=== PATIENT | male | born 1960 | race Caucasian/White ===

== ENCOUNTER 2017-01-22 09:29 | Emergency (ER) | payer OTHER ==
[2017-01-22 10:10] LABS: #Basophils 0.1 thou/uL (0.0-0.2); #Eosinphils 0.2 thou/uL (0.0-0.7); #Lymphocytes 3.6 thou/uL (1.20-3.40); #Monocytes 0.6 thou/uL (0.11-0.59); #Neutrophils 4.7 thou/uL (1.40-6.50); %Basophils 0.6 % (0.0-1.0); %Lymphocytes 39.8 % (21.0-51.0); Hematocrit 44.9 % (42.0-52.0); Mean Platelet Volume 7.5 fL (7.4-10.4); Red Blood Cell (RBC) Count 4.94 mill/uL (4.70-6.10)
[2017-01-22 10:24] LABS: ALT (SGPT) 25 U/L (8-55); AST (SGOT) 23 U/L (5-34); Alkaline Phosphatase 54 U/L (40-150); Anion Gap 11 mmol/L (10-20); BUN (Urea Nitrogen) 9 mg/dL (8.4-25.7); Bilirubin, Total 0.5 mg/dL (0.2-1.2); CK (CPK) 59 U/L (30-200); Calc. Creatinine Clearance 0 mL/min (70-130); Calcium 9.4 mg/dL (7.8-10.44); Carbon Dioxide 24 mmol/L (22-29); Chloride 105 mmol/L (98-107); Estimated GFR-MDRD 79; Globulin 3.1 g/dL (2.4-3.5); Lipase 36 U/L (8-78); Protein, Total 7.4 g/dL (6.0-8.3)
[2017-01-22 10:28] LABS: Troponin I Less than 0.010 ng/mL (< 0.028)
[2017-01-22] MEDS ORDERED: Lidocaine Viscous Sol 2% 15 ml UD Cup ONE (10:28)
[2017-01-22] MEDS ORDERED: Mag-Al 1200 mg/1200 mg/30 ML UDCUP ONE (10:28)
[2017-01-22] MEDS ORDERED: Labetalol HCl 100 MG/20 ML VIAL ONE (10:29)
--- NOTE | 2017-01-22 10:57 | RAD ---
PORTABLE CHEST: History: Chest pain. Comparison: 09-21-16 FINDINGS: Lungs are clear. No infiltrate or vascular congestion. Heart and mediastinum unremarkable. IMPRESSION: No evidence of acute process. POS: [facility]
== END 2017-01-22 11:21 | disposition home or self-care (01) ==
LOC: ERS 09:29
DX: R10.13 Epigastric pain (principal); I25.10 Atherosclerotic heart disease of native coronary artery without angina pectoris; E78.5 Hyperlipidemia, unspecified; I10 Essential (primary) hypertension; F17.210 Nicotine dependence, cigarettes, uncomplicated; I25.2 Old myocardial infarction; Z79.82 Long term (current) use of aspirin; Z79.899 Other long term (current) drug therapy
CPT/HCPCS: 71010; 80053; 82553; 83690; 84484; 85025; 93005

== ENCOUNTER 2017-01-29 22:59 | Inpatient (IN) | payer OTHER, SELFPAY ==
[2017-01-30 00:16] LABS: Anion Gap 19 mmol/L (10-20); BUN (Urea Nitrogen) 8 mg/dL (8.4-25.7); CK (CPK) 96 U/L (30-200); Calc. Creatinine Clearance 0 mL/min (70-130); Carbon Dioxide 20 mmol/L (22-29); Chloride 101 mmol/L (98-107); Estimated GFR-MDRD 84
[2017-01-30 00:19] LABS: #Eosinphils 0.2 thou/uL (0.0-0.7); #Lymphocytes 4.5 thou/uL (1.20-3.40); #Monocytes 0.7 thou/uL (0.11-0.59); #Neutrophils 5.3 thou/uL (1.40-6.50); %Basophils 0.3 % (0.0-1.0); %Eosinophils 1.6 % (0.0-10.0); %Lymphocytes 41.8 % (21.0-51.0); %Monocytes 6.8 % (0.0-10.0); Hematocrit 43.1 % (42.0-52.0); Mean Platelet Volume 7.9 fL (7.4-10.4); Red Blood Cell (RBC) Count 4.76 mill/uL (4.70-6.10); White Blood Cell (WBC) Count 10.7 thou/uL (4.8-10.8)
[2017-01-30 00:20] LABS: PTT 26.5 SEC (22.9-36.1); Prothrombin Time 14.1 SEC (12.0-14.7)
[2017-01-30 00:21] LABS: Troponin I Less than 0.010 ng/mL (< 0.028)
[2017-01-30 00:49] LABS: Bilirubin Negative (Negative); Blood, Urine Negative (Negative); Glucose, Urine (Dipstick) 250 mg/dL (Negative); Ketone, Urine Negative (Negative); Nitrite Negative (Negative); Protein, Urine (Dipstick) Negative (Neg-Trace); Urobilinogen 0.2 mg/dL (0.2-1.0)
[2017-01-30] MEDS ORDERED: Acetaminophen 325 MG TAB PO PRN (03:44)
[2017-01-30] MEDS ORDERED: Ondansetron ODT 4 MG TAB PO PRN (03:44)
[2017-01-30] MEDS ORDERED: Potassium Chloride 20 MEQ TAB PO SCH (04:00)
[2017-01-30] MEDS ORDERED: Potassium Chloride 20 MEQ TAB ONE (05:17)
--- NOTE | 2017-01-30 06:18 | HP-2 ---
CODE STATUS: FULL. PRIMARY CARE PHYSICIAN: [facility] [place]. ATTENDING PHYSICIAN: Dr. Adriana Willard. RESIDENT: Eliz Henderson D.O. CHIEF COMPLAINT: Near syncope, left-sided facial paresthesias. HISTORY OF PRESENT ILLNESS: This is a 56-year-old male with past medical history of coronary artery disease status post stents x5, hyperlipidemia, hypertension that presents secondary to left-sided facial paresthesias. He reports that he was sitting on the porch drinking alcohol with his when he suddenly started to experience sharp pain in his left baptism and tingling in the left cheek and gums. The patient did feel like he was going to pass out, but denied any loss of consciousness. The patient endorses having 4-5 of these episodes today, lasting 10 minutes at a time. Last episode was associated with blurry vision. No facial droop or asymmetry was noted by the during these episodes. The patient denied any chest pain, weakness, gait changes, seizures or speech changes. He took 324 mg aspirin prior to arrival. The patient does state that he has never experienced anything like this in the past. He is unable to recall whether or not he had any associated photophobia or sensitivity to Sound. PAST MEDICAL HISTORY: 1. Coronary artery disease status post stents x5. 2. Myocardial infarction. 3. Hyperlipidemia. 4. Hypertension. PAST SURGICAL HISTORY: 1. Cardiac stents x5, the last one was placed in 04/2016. 2. Left inguinal hernia repair x3 with mesh. 3. Cyst removal from the back of the neck. ALLERGIES: 1. LISINOPRIL. 2. NIACIN. MEDICATIONS: 1. Clopidogrel 75 mg daily. 2. Metoprolol tartrate 25 mg b.i.d. 3. Aspirin 81 mg daily. 4. Famotidine 20 mg b.i.d. 5. Amlodipine 5 mg daily. 6. Atorvastatin 40 mg at bedtime. 7. Fenofibrate 108 mg daily. 8. Fluticasone 50 mcg 2 sprays each nostril. 9. Loratadine 10 mg daily. 10. Nitroglycerin 0.4 mg p.r.n. 11. Protonix 40 mg daily. FAMILY HISTORY: Family history of strokes. SOCIAL HISTORY: The patient is a current half pack per day smoker. He has been smoking for the last 30 years. The patient endorses alcohol use; however, he was very defensive when questioned about how much and how often he drinks. He would only state that he drinks a couple times a week, but would not elaborate on how much. The patient denies any drug use. REVIEW OF SYSTEMS: A 12 point review of systems was performed. All were negative except as listed in the HPI. PHYSICAL EXAMINATION: VITAL SIGNS: Blood pressure 100/56, pulse 68, respiratory rate 18, T-max 97.3, pulse ox 96% on room air, current weight 93 kilograms. GENERAL: The patient is alert and oriented x3, no acute distress, well- developed, well-nourished, and appropriately interactive. EYES: Pupils equally round, reactive to light and accommodation. Extraocular muscles intact. Conjunctivae within normal limits. ENT: Nasal mucosa within normal limits. NECK: Neck is supple, without lymphadenopathy, thyromegaly or bruits. CARDIOVASCULAR: Regular rate and rhythm. No murmurs or gallops. Radial pulses 2+. Pedal pulses 2+. RESPIRATORY: Normal respiratory effort, no retractions. LUNGS: Clear to auscultation bilaterally. SKIN: Skin is warm and dry without cyanosis or lesions. ABDOMEN: Abdomen is soft, nontender to palpation. Bowel sounds positive in all four quadrants. There is mild distention of the abdomen. EXTREMITIES: No clubbing, cyanosis or edema. MUSCULOSKELETAL: Structure within normal limits and tone within normal limits. NEUROLOGIC: No focal deficits. Sensation within normal limits. Cranial nerves II through XII intact. GCS 15. No facial droop or asymmetry noted on exam. Muscle strength was 5/5 throughout. PSYCHIATRIC: Appropriate. LABORATORY DATA: 1. CBC reveals a white blood cell count 10.7, hemoglobin 14.7, hematocrit 43.1 , platelet count 260. 2. BMP reveals sodium 137, potassium 3.3, chloride 101, bicarbonate 20, BUN 8, creatinine 0.92, glucose of 173, and calcium of 9.0. 3. PT 26.5, INR 1.1, PTT 14.1. 4. CK 96. 5. CK-MB 1.5, troponin less than 0.010. 6. UA shows only 250 glucose. 7. Influenza A and B negative. ASSESSMENT AND PLAN: This is a 56-year-old male with past medical history of coronary artery disease, hyperlipidemia, hypertension, who presented with facial numbness. 1. Episodes concerning for transient ischemic attack versus complex migraine versus trigeminal neuralgia. The patient was admitted for observation to the stroke unit. CT of the brain was normal. CTA of the head and neck are pending as well as MRI of the brain without contrast. The patient states he is compliant with medication. Coags were normal. The patient took 324 mg of aspirin today. We will continue with daily aspirin and do q.4 hour neuro checks while in observation. 2. Hypertension. Continue home medications. 3. Hyperlipidemia. Continue home medications. 4. Coronary artery disease status post stents. Continue home medications. Troponin was negative. 5. Alcohol abuse. The patient is in denial and defensive when asked questions regarding alcohol use, thus we were unable to elicit a valid or reliable history. The patient was placed on ASE protocol. His alcohol level was noted to be 58 in the ED. We will also give the patient thiamine. 6. Tobacco abuse, counseled on cessation. 7. Gastrointestinal prophylaxis, Protonix. 8. Deep venous thrombosis prophylaxis, sequential compression devices. DISPOSITION AND LENGTH OF HOSPITAL STAY: One day. Symptomatic medications will be provided. History and physical exam as well as management discussed with Dr. Adriana Willard. [place]
--- NOTE | 2017-01-30 08:17 | CT ---
PRELIMINARY REPORT/[facility]/EMERGENCY AFTER HOURS PROCEDURE: EXAM: CT Head Without Intravenous Contrast EXAM DATE/TIME: 01/30/2017 12:10 AM CLINICAL HISTORY: 56 years old, male; Pain; Headache; Headache not specified; Patient HX: PATEL TECHNIQUE: Axial computed tomography images of the head/brain without intravenous contrast. COMPARISON: No relevant prior studies available. FINDINGS: Brain: No evidence of acute large vessel infarction. No evidence of acute intracranial hemorrhage, ex traxial fluid or midline shift. Mild prominence of the cerebral sulci and ventricles. Mild low densit y changes within the white matter bilaterally. Cerebellum atrophic; otherwise, posterior fossa struct ures within normal limits. Ventricles: See above. Bones/joints: Unremarkable. No acute fracture. Soft tissues: Unremarkable. Sinuses: Complete fluid opacification of the right maxillary sinus. Mastoid air cells: Unremarkable as visualized. No mastoid effusion. IMPRESSION: 1. No evidence of acute large vessel infarction. 2. No evidence of acute intracranial hemorrhage, extraxial fluid or midline shift. 3. Mild cerebral atrophy. 4. 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 5. Complete fluid opacification of the right maxillary sinus. Thank you for allowing us to participate in the care of your patient. Dictated and Authenticated by: Ry Roe MD 01/30/2017 12:29 AM Central Time ([place] & [place]) FINAL REPORT EMERGENCY AFTER HOURS CT OF BRAIN PERFORMED WITHOUT CONTRAST ENHANCEMENT: Date: 01/29/17 HISTORY: Headache. Gait disturbance. FINDINGS: There is mild ventricular and sulcal prominence for age. No signs of intracerebral hemorrhage or extr a-axial fluid collections. Mastoid air cells are clear. Right maxillary sinus is opacified. IMPRESSION: No acute intracranial abnormalities. This report is in agreement with the preliminary report issued by [facility]. POS: [facility]
[2017-01-30 08:31] VITALS: BP 154/98; TEMP 98; BMI 29.0
[2017-01-30] MEDS ORDERED: Aspirin 81 mg Enteric Coated Tablet PO SCH (09:00)
--- NOTE | 2017-01-30 10:40 | CT ---
CONTRAST ENHANCED CTA NECK AND INTRACRANIAL CTA: HISTORY: TIAs. TECHNIQUE: A contrast enhanced CTA is performed, and 2D and 3D reconstructed images are performed on an [facility] ent 3D work station. FINDINGS: Noncontrast enhanced CT images of the brain are unremarkable. There is a small right temporal bone dural-based calcified density, possibly representing a tiny righ t squamosal portion temporal bone meningioma. The rest of the [place] CTA is unremarkable. No evidence of filling defect seen in the KAREN, MCA, or CONTINUING EDUCATION SPECIALIST vessels. The aortic arch is unremarkable. The right brachiocephalic artery is unremarkable. The right and le ft common carotid arteries are patent without evidence of significant stenosis or disease. There is some minimal atherosclerotic plaque at the distal aspect of the right CCA. The right and left ICAs a re patent. Incidentally noted complete opacification of the right maxillary sinus is seen. There does appear to be a small left maxillary sinus mucus retention cyst. IMPRESSION: Minimal but not significant degree of distal right common carotid artery calcified plaque. POS: [facility]
--- NOTE | 2017-01-30 11:07 | MRI ---
MRI BRAIN WITHOUT CONTRAST: Date: 01/30/17 HISTORY: TIA. FINDINGS: Correlation is made with the CT scan from earlier today. No restricted diffusion is seen. No evidence of infarct, hemorrhage, midline shift, or abnormal extra -axial fluid collections noted. The ventricular size is appropriate and the basilar cisterns are stap[place] nt. A few foci of T2 prolongation in the periventricular white matter are consistent with mild chroni c small vessel ischemic disease. There is mucosal disease in the paranasal sinuses. IMPRESSION: No evidence of acute intracranial process. POS: [facility]
[2017-01-30 12:52] LABS: Anion Gap 11 mmol/L (10-20); BUN (Urea Nitrogen) 8 mg/dL (8.4-25.7); Calc. Creatinine Clearance 119 mL/min (70-130); Calcium 9.4 mg/dL (7.8-10.44); Carbon Dioxide 26 mmol/L (22-29); Chloride 105 mmol/L (98-107); Estimated GFR-MDRD 89
[2017-01-30] MEDS ORDERED: ISOVUE-370 76%-LOCM 1 ML ONE (13:33)
--- NOTE | 2017-01-30 19:34 | PDOC.EVN ---
Event Note - Event Note Event Note: Patient seen and examined. Case discussed with Dr. Henderson and her and Noe 's H&P reviewed and repeated by me. Agree with A/P as documented. Briefly Mr. Deal is a 56 yo WM with PMH of CAD s/p stents. HTN, HLD who presents with left temporal pain and numbness of the middle and lower portion of left face. Several 5 minute episodes while drinking on the porch. By the time he got to ER symptoms had all resolved. Denied fever, rash, gait or strength problems, dizziness. exam: a&o x3, nad NEck: no carotid bruits Heart: normal s1/s2 no m Lungs: ctab Neuro: no focal deficits Labs and imaging reviewed 1. L face numbness: large differential but most likely either paresthesia secondary to B12 deficiency vs. complex migraine vs shingles pain (with rash to follow). MRI with defect so I doubt CVA vs TIA. No sign of significant carotid stenosis. No sign of temportal arteritis as resolved and sed rate of 3 2. B12 deficiency- replace with OTC b12 supplement 3. Alcohol abuse- patient with no desire to change habit 4. HTN- home meds Stable for d/c home.
--- NOTE | 2017-02-02 23:55 | DIS-2 ---
DATE OF ADMISSION: 01/30/2017 DATE OF DISCHARGE: 01/30/2017 ADMITTING ATTENDING: Dr. Adriana Willard. DISCHARGE ATTENDING: Dr. Adriana Willard. RESIDENT: Dr. Isak Pritchard. CONSULTS: None. PROCEDURES: 1. Brain CT impression: No evidence of acute large vessel infarction. No evidence of acute intracr anial hemorrhage, extraaxial fluid, or midline shift, mild cerebral atrophy, mild white matter low de nsity changes most compatible with cerebral leukoencephalopathy related to chronic small vessel ische solitario disease, complete fluid opacification of right maxillary sinus. 2. Brain MRI impression: No restricted diffusion is seen, no evidence of infarct, hemorrhage, midli ne shift, or abnormal extraaxial fluid collection noted. There is mucosal disease in the paranasal s inuses, mild chronic small vessel ischemic disease. 3. CT angio of [place] with contrast impression: There is a small right temporal bone dura l based calcified density, possibly representing a tiny right squamosal portion temporal bone meningi tommy, the rest of the [place] CTA is unremarkable, no evidence of filling defects. There is incidentally noted complete opacification of right maxillary sinus and appears to be a small left max illary sinus mucous retention cysts and minimal, but not significant distal right common carotid trevor ry calcified plaque. PRIMARY DIAGNOSES: Left-sided paresthesia likely complex migraine versus trigeminal neuralgia versus transient ischemic attack. SECONDARY DIAGNOSES: 1. Hypertension. 2. Hyperlipidemia. 3. Coronary artery disease, status post stent. 4. Alcohol abuse. 5. Tobacco abuse. 6. Left-sided meningioma. 7. Low vitamin B12. DISCHARGE MEDICATIONS: 1. Nitroglycerin 0.4 mg sublingual every 5 minutes as needed for angina. 2. Pantoprazole 40 mg p.o. daily. 3. Claritin 10 mg p.o. daily. 4. Famotidine 20 mg p.o. b.i.d. 5. Atorvastatin 40 mg p.o. daily. 6. Amlodipine 5 mg p.o. daily. 7. Plavix 75 mg p.o. daily. 8. Metoprolol 25 mg p.o. daily. 9. Fluticasone furoate 9.9 mL nasal spray daily. 10. Fenofibrate 120 mg p.o. daily. 11. Aspirin 81 mg daily. DISCONTINUED MEDICATIONS: None. HISTORY OF PRESENT ILLNESS AND HOSPITAL COURSE: This is a 56-year-old male with past medical history of CAD post-stent x5, hyperlipidemia, hypertension, who presented secondary to left-sided facial par esthesia. He states that he was sitting on the porch, drinking alcohol with his when he suddenl y experienced sharp pain in his left synagogue and tingling in his left cheeks and gums. He said that h e felt like he was about to faint, but did not lose consciousness. He states that he had about 4-5 e pisodes of these lasting 10 minutes of each. However, there was no facial droop or asymmetry or slur red speech witnessed by either him or his . He took 324 mg aspirin prior to arrival at the ED. He states that he never had anything like this before. Please see his above procedures for results. In the ED, his electrolytes were found to be within the normal limits. He was then admitted to [facility] floor for further TIA workup. The workup for TIA came back negative. Because of his unusual situ ation, he was also tested for vitamin B12 and RPR, RPR came back negative. UDS was done and did find that he had elevated plasma alcohol at 58. Vitamin B12 was found to be low at 193 about 10% low luisito n normal level. As the results of all his test was negative, we had ruled out stroke as a possibilit y; however, talking with the patient several other options were presented as possible causes for his symptoms, which the beginning of a shingle episode versus trigeminal neuralgia versus atypical migrai ne headache. He was given information related to each of those and how to recognize their sign, do n ot feel that temporal arteritis, as he did not have any tenderness or to this temporal artery and was not palpable. Patient's symptoms had completely resolved on the evening of discharge. He was also reminded that he should follow up with his primary care physician about the meningioma likely needing a repeat imaging CT or MRI within 6 months. He was also educated on his low vitamin B12 and advised to start taking a multivitamin and following up with his PCP. DISPOSITION: Stable. DISCHARGE INSTRUCTIONS: 1. Location: To home. 2. Diet: Heart-healthy diet. 3. Activity: As tolerated. 4. Followup: Followup visit with PCP within 1 week.
--- NOTE | 2017-02-06 11:36 | CT ---
CONTRAST ENHANCED CTA NECK AND INTRACRANIAL CTA: HISTORY: TIAs. TECHNIQUE: A contrast enhanced CTA is performed, and 2D and 3D reconstructed images are performed on an [facility] ent 3D work station. FINDINGS: Noncontrast enhanced CT images of the brain are unremarkable. There is a small right temporal bone dural-based calcified density, possibly representing a tiny righ t squamosal portion temporal bone meningioma. The rest of the [place] CTA is unremarkable. No evidence of filling defect seen in the KAREN, MCA, or CHIEF MECHANICAL ENGINEER vessels. The aortic arch is unremarkable. The right brachiocephalic artery is unremarkable. The right and le ft common carotid arteries are patent without evidence of significant stenosis or disease. There is some minimal atherosclerotic plaque at the distal aspect of the right CCA. The right and left ICAs a re patent. Incidentally noted complete opacification of the right maxillary sinus is seen. There does appear to be a small left maxillary sinus mucus retention cyst. IMPRESSION: Minimal but not significant degree of distal right common carotid artery calcified plaque.
== END 2017-01-30 16:05 | disposition home or self-care (01) | DRG 74 ==
LOC: ERS 22:59 → ERHOLD 01-30 02:05 → 2SW 01-30 08:02
PROVIDERS: ADMIT Family Medicine; ATTEND Family Medicine
DX: G50.0 Trigeminal neuralgia (principal); G45.9 Transient cerebral ischemic attack, unspecified; G43.809 Other migraine, not intractable, without status migrainosus; R55 Syncope and collapse; I25.10 Atherosclerotic heart disease of native coronary artery without angina pectoris; Z95.5 Presence of coronary angioplasty implant and graft; E78.5 Hyperlipidemia, unspecified; I10 Essential (primary) hypertension; I25.2 Old myocardial infarction; F10.10 Alcohol abuse, uncomplicated; F17.210 Nicotine dependence, cigarettes, uncomplicated; E53.8 Deficiency of other specified B group vitamins; D32.0 Benign neoplasm of cerebral meninges; Y90.2 Blood alcohol level of 40-59 mg/100 ml; Z79.82 Long term (current) use of aspirin
CPT/HCPCS: 36415; 70450; 70496; 70498; 70551; 80048; 80307; 81003; 82550; 82553; 82607; 84484; 85025; 85610; 85652; 85730; 86780; 87086; 93005; 99406

== ENCOUNTER 2018-01-05 13:22 | Outpatient (CLI) | payer OTHER ==
[~2018-01-05 13:22] MED LIST: Gadobenate Dimeglumine 529 MG/1 ML (20ML VIAL) ONE
--- NOTE | 2018-01-05 19:04 | MRI ---
MRI PELVIS WITH AND WITHOUT CONTRAST: Date: 01/05/18 HISTORY: Prostate cancer. COMPARISON: None. TECHNIQUE: Multiplanar, multisequence MRI of the prostate performed prior to and after the intravenous administr ation of contrast. 3D rendering is provided. The examination was reviewed on an independent 3D workstation. FINDINGS: Prostate measures 5.2 x 4.3 x 3.7, for a volume of 40.48 cm. Peripheral Zone: No abnormality is seen on the diffusion-weighted imaging or the ADC. Transitional Zone: There are circumscribed hypointense and heterogeneous encapsulated nodules. Seminal Vesicles: Intact. Neurovascular Bundles: Intact. Lymph Nodes: No pathologically enlarged lymph nodes. Left obturator lymph node is seen, although has normal fatty hilum. Bones: On the large field of view T1-weighted sequence, there are no abnormal areas of marrow signal replace ment to suggest osseous metastatic disease. Likely a prior left inguinal hernia repair. Mild to moderate diverticular disease sigmoid colon witho ut active current inflammation. IMPRESSION: PI-RADS 2: Low (clinically significant prostate cancer is unlikely to be present). POS: [facility]
== END 2018-01-05 13:23 | disposition home or self-care (01) ==
LOC: TBSIIMAG 13:22
DX: C61 Malignant neoplasm of prostate (principal)
CPT/HCPCS: 72197; 82565; A9579

== ENCOUNTER 2018-02-01 15:31 | Observation (INO) | payer OTHER, SELFPAY ==
--- NOTE | 2018-02-01 15:56 | CT ---
CT BRAIN WITHOUT CONTRAST: Date: 02/01/18 HISTORY: Slurred speech. FINDINGS: Comparison made with exam of 01/30/17. No evidence of acute infarct, hemorrhage, midline shift, or abnormal extra-axial fluid collections ar e seen. The ventricular size is stable and the basilar cisterns are patent. The bony calvarium is int act. There is mucosal disease in the paranasal sinuses. IMPRESSION: No CT evidence of acute intracranial process. Discussed over the telephone with ER physician, Dr. Castañeda, at 1550 hours./ CODE CR. POS: [facility]
[2018-02-01 15:58] LABS: #Basophils 0.1 thou/uL (0.0-0.2); #Eosinphils 0.1 thou/uL (0.0-0.7); #Monocytes 0.8 thou/uL (0.11-0.59); #Neutrophils 4.9 thou/uL (1.40-6.50); %Basophils 0.9 % (0.0-1.0); %Eosinophils 1.2 % (0.0-10.0); %Lymphocytes 40.5 % (21.0-51.0); %Monocytes 8.2 % (0.0-10.0); %Neutrophils 49.2 % (42.0-75.0); Hemoglobin 15.9 g/dL (14.0-18.0); Mean Corpuscular HGB CONC 33.7 g/dL (32.0-36.0); Mean Corpuscular Hemoglobin 30.8 pg (27.0-31.0); Mean Corpuscular Volume 91.2 fL (78.0-98.0); Platelet Count 256 thou/uL (130-400); RBC Distribution Width 12.4 % (11.5-14.5); Red Blood Cell (RBC) Count 5.17 mill/uL (4.70-6.10); White Blood Cell (WBC) Count 9.9 thou/uL (4.8-10.8)
[2018-02-01 16:11] LABS: INR-International Normal Ratio 1.1; PTT 30.7 SEC (22.9-36.1)
[2018-02-01 16:18] LABS: Acetaminophen Less than 6.0 mcg/mL (10.0-30.0); Alcohol Less than 10 mg/dL (Less than 10); Salicylate Less than 8.0 mg/dL (15.0-30.0)
[2018-02-01 16:19] LABS: ALT (SGPT) 23 U/L (8-55); AST (SGOT) 24 U/L (5-34); Albumin 4.2 g/dL (3.5-5.0); Alkaline Phosphatase 59 U/L (40-150); Anion Gap 14 mmol/L (10-20); BUN (Urea Nitrogen) 12 mg/dL (8.4-25.7); Bilirubin, Total 0.6 mg/dL (0.2-1.2); Calc. Creatinine Clearance 0 mL/min (70-130); Calcium 9.6 mg/dL (7.8-10.44); Carbon Dioxide 20 mmol/L (22-29); Chloride 108 mmol/L (98-107); Estimated GFR-MDRD 76; Globulin 2.8 g/dL (2.4-3.5); Glucose 99 mg/dL (70-105); Potassium 4.4 mmol/L (3.5-5.1); Sodium 138 mmol/L (136-145)
[2018-02-01 16:32] LABS: Bilirubin Negative (Negative); Blood, Urine Negative (Negative); Clarity CLEAR (Clear); Glucose, Urine (Dipstick) Negative (Negative); Leukocyte Negative (Negative); Nitrite Negative (Negative); Protein, Urine (Dipstick) Negative (Neg-Trace); Specific Gravity, Urine 1.013 (1.002-1.036); pH, Urine 6.5 (5.0-9.0)
--- NOTE | 2018-02-01 16:38 | RAD ---
PORTABLE CHEST ONE VIEW: Date: 02-01-18 Time: 4:02 p.m. History: Altered mental status. FINDINGS: Comparison is made with exam of 01-22-17. The heart size is normal. The lungs are expanded without focal areas of consolidation, pneumothorax, or pleural effusions. IMPRESSION: No radiographic evidence of acute cardiopulmonary process. POS: [facility]
[2018-02-01 16:43] LABS: Amphetamine Not Detected (NotDetected); Barbiturates Screen Not Detected (NotDetected); Benzodiazepine Screen Not Detected (NotDetected); Cocaine Metabolite Screen Not Detected (NotDetected); Medtox Control Line Valid? VALID (VALID); Medtox Reader # READER 4; Methadone Not Detected (NotDetected); Methamphetamine Not Detected (NotDetected); Opiate Screen Not Detected (NotDetected); Oxycodone Screen Not Detected (NotDetected); Phencyclidine (PCP) Not Detected (NotDetected); THC/Cannabinoid Screen Not Detected (NotDetected); Tricyclic Screen Not Detected (NotDetected)
[2018-02-01 21:24] VITALS: BMI 27.5
[2018-02-02] MEDS ORDERED: Nitroglycerin 0.4 MG TAB (25 Tab Bottle) SL SCH (07:45)
[2018-02-02] MEDS ORDERED: Nitroglycerin 0.4 MG TAB (25 Tab Bottle) SL PRN (08:11)
[2018-02-02] MEDS ORDERED: Ondansetron ODT 4 MG TAB PO PRN (08:34)
[2018-02-02] MEDS ORDERED: FENOFIBRATE 120 MG PO SCH (09:00)
[2018-02-02] MEDS ORDERED: Atorvastatin Calcium 40 MG TAB PO SCH (09:00)
[2018-02-02] MEDS ORDERED: FLUTICASONE FUROATE NS SCH (09:00)
[2018-02-02] MEDS ORDERED: Metoprolol Tartrate 25 MG TAB PO SCH (09:00)
[2018-02-02] MEDS ORDERED: Amlodipine 5 MG TAB PO SCH (09:00)
[2018-02-02] MEDS ORDERED: Famotidine 20 MG TAB PO SCH (09:00)
[2018-02-02] MEDS ORDERED: Loratadine 10 MG TAB PO SCH (09:00)
[2018-02-02] MEDS ORDERED: Clopidogrel Bisulfate 75 MG TAB PO SCH (09:00)
[2018-02-02] MEDS ORDERED: Amlodipine 10 MG TAB PO SCH (09:00)
[2018-02-02] MEDS ORDERED: Fenofibrate Nanocrystallized 145 MG TAB PO SCH (09:00)
[2018-02-02] MEDS ORDERED: Non-Formulary Item 1 EACH (Loratadine [Claritin] 10 MG) PO SCH (09:00)
[2018-02-02] MEDS ORDERED: Fluticasone Propionate Nasal Spray 16 gm Bottle NASAL SCH (09:00)
[2018-02-02] MEDS ORDERED: Aspirin 81 mg Enteric Coated Tablet PO SCH (09:00)
--- NOTE | 2018-02-02 09:16 | ULT ---
BILATERAL CAROTID DUPLEX ULTRASOUND: DATE: 02/02/18 HISTORY: TIA and CVA. TECHNIQUE: Lara scale ultrasound with color flow and spectral Doppler imaging of the extracranial carotid artery systems performed. FINDINGS: The peak systolic velocity in the right ICA measures 58 cm/second with an end-diastolic velocity of 1 7 cm/second and a systolic ratio of 0.74. The peak systolic velocity in the left ICA measures 67 cm/second with an end-diastolic velocity of 21 cm/second and a systolic ratio of 0.84. Flow in both vertebral arteries remains antegrade. IMPRESSION: No evidence of hemodynamically significant stenosis. POS: [facility]
--- NOTE | 2018-02-02 09:57 | MRI ---
MRI BRAIN WITHOUT CONTRAST: Date: 02/02/18 HISTORY: TIA. FINDINGS: Comparison made with exam of 01/30/17. Correlation is made with CT scan from previous day. Changes of mild chronic small vessel ischemic disease are again seen. No restricted diffusion is iden tified. No evidence of infarct, hemorrhage, midline shift, or abnormal extra-axial fluid collections are seen. The ventricular size is stable and the basilar cisterns are patent. There is mucosal diseas e in the paranasal sinuses. IMPRESSION: No evidence of acute intracranial process. POS: [facility]
[2018-02-02 11:31] VITALS: BP 122/83; TEMP 97.7
== END 2018-02-02 13:35 | disposition home or self-care (01) ==
LOC: ERS 15:31 → 2SE 18:43
PROVIDERS: ADMIT Internal Medicine Infectious Disease; ATTEND Internal Medicine Infectious Disease
DX: R29.810 Facial weakness (principal); R47.81 Slurred speech; I25.2 Old myocardial infarction; I25.10 Atherosclerotic heart disease of native coronary artery without angina pectoris; E78.5 Hyperlipidemia, unspecified; E78.00 Pure hypercholesterolemia, unspecified; I10 Essential (primary) hypertension; F17.210 Nicotine dependence, cigarettes, uncomplicated; Z79.02 Long term (current) use of antithrombotics/antiplatelets; Z79.82 Long term (current) use of aspirin; Z79.51 Long term (current) use of inhaled steroids; Z79.899 Other long term (current) drug therapy; Z88.8 Allergy status to other drugs, medicaments and biological substances; Z95.5 Presence of coronary angioplasty implant and graft
CPT/HCPCS: 36416; 70450; 70551; 71045; 80053; 80306; 80307; 81003; 84484; 85025; 85610; 85730; 93005; 93880; G0378

== ENCOUNTER 2019-02-09 20:25 | Inpatient (IN) | payer OTHER ==
[2019-02-09] MEDS ORDERED: Aspirin Chewable 81 MG TAB ONE (20:41)
[2019-02-09 20:47] LABS: #Basophils 0.1 thou/uL (0.0-0.2); #Eosinphils 0.2 thou/uL (0.0-0.7); #Lymphocytes 4.3 thou/uL (1.20-3.40); #Monocytes 0.8 thou/uL (0.11-0.59); %Basophils 0.7 % (0.0-1.0); %Eosinophils 1.2 % (0.0-10.0); %Lymphocytes 35.2 % (21.0-51.0); %Monocytes 6.4 % (0.0-10.0); %Neutrophils 56.5 % (42.0-75.0); Hemoglobin 15.2 g/dL (14.0-18.0); Mean Corpuscular HGB CONC 33.8 g/dL (32.0-36.0); Mean Corpuscular Hemoglobin 30.5 pg (27.0-31.0); Mean Platelet Volume 7.6 fL (7.4-10.4); Platelet Count 236 thou/uL (130-400); RBC Distribution Width 12.2 % (11.5-14.5); Red Blood Cell (RBC) Count 4.98 mill/uL (4.70-6.10); White Blood Cell (WBC) Count 12.3 thou/uL (4.8-10.8)
[2019-02-09] MEDS ORDERED: DOPamine 400 MG/D5W 250 ML 250 ML ONE (20:48)
--- NOTE | 2019-02-09 20:56 | RAD ---
EXAM: Portable chest PROVIDED CLINICAL HISTORY: Dyspnea COMPARISON: 02/01/2018 FINDINGS: Cardiac and mediastinal silhouette is within normal limits. No focal consolidation, pleural fluid or pneumothorax evident. Evaluation is limited due to material overlying the chest. IMPRESSION: No evidence for an acute cardiopulmonary process.
[2019-02-09 21:02] LABS: ALT (SGPT) 18 U/L (8-55); AST (SGOT) 15 U/L (5-34); Albumin 4.1 g/dL (3.5-5.0); Alkaline Phosphatase 54 U/L (40-110); Anion Gap 14 mmol/L (10-20); BUN (Urea Nitrogen) 15 mg/dL (8.4-25.7); Bilirubin, Total 0.4 mg/dL (0.2-1.2); CK (CPK) 54 U/L (30-200); Calc. Creatinine Clearance 0 mL/min (70-130); Calcium 8.8 mg/dL (7.8-10.44); Carbon Dioxide 20 mmol/L (22-29); Chloride 105 mmol/L (98-107); Estimated GFR-MDRD 66; Globulin 2.7 g/dL (2.4-3.5); Glucose 129 mg/dL (70-105); Lipase 41 U/L (8-78); Potassium 3.9 mmol/L (3.5-5.1); Protein, Total 6.8 g/dL (6.0-8.3); Sodium 135 mmol/L (136-145)
[2019-02-09 21:03] LABS: Alcohol Less than 10 mg/dL (Less than 10); Salicylate Less than 8.0 mg/dL (15.0-30.0)
--- NOTE | 2019-02-09 21:17 | RAD ---
EXAM: Portable chest PROVIDED CLINICAL HISTORY: Shortness of breath COMPARISON: Exam earlier same date FINDINGS: Interval placement of left subclavian central line, the tip of which projects in expected location of SVC. The supine nature of the examination is not sensitive for detection of pneumothorax, without evidence for such. Additional significant interval change with respect to the prior examination is no t apparent. IMPRESSION: As above.
[2019-02-09 21:25] LABS: CKMB 1.7 ng/mL (0-6.6)
[2019-02-09 21:31] LABS: Bilirubin Negative (Negative); Blood, Urine Negative (Negative); Clarity Clear (Clear); Glucose, Urine (Dipstick) 100 mg/dL (Negative); Leukocyte Negative Leu/uL (Negative); Nitrite Negative (Negative); Protein, Urine (Dipstick) Negative (Neg-Trace); Urobilinogen Normal mg/dL (Less than 2)
[2019-02-09 21:40] LABS: Amphetamine Not Detected (NotDetected); Benzodiazepine Screen Not Detected (NotDetected); Cocaine Metabolite Screen Not Detected (NotDetected); Medtox Reader # READER 4; Methadone Not Detected (NotDetected); Methamphetamine Not Detected (NotDetected); Opiate Screen Not Detected (NotDetected); Phencyclidine (PCP) Not Detected (NotDetected); THC/Cannabinoid Screen Not Detected (NotDetected); Tricyclic Screen Not Detected (NotDetected)
[2019-02-09 21:41] LABS: Barbiturates Screen Not Detected (NotDetected); Medtox Control Line Valid? VALID (VALID); Oxycodone Screen Not Detected (NotDetected)
--- NOTE | 2019-02-09 21:45 | PDOC.FPRHP ---
- History of Present Illness Chief Complaint: dizziness, diaphoresis History of Present Illness: PCP: [facility] ([facility]) Jacob Deal is a 58 year old M with a PMH of A fib and CAD s/p 5 stents who presented to the ED tonight after experiencing several episodes of feeling flushed, cool, clammy, and diaphoretic. Started about an hour [employer], episodes lasted several seconds to a couple minutes and resolved spontaneously. Associated SOB. Was in his normal state of health prior to onset of these symptoms. Has never had symptoms like this prior to this. Denies any fever, chills, n/v, diarrhea, abdominal pain. In ED, pt was given 2 L NS, Aspirin and left subclavian central line was placed and Dopamine was initiated. Dr. Ruby was contacted from the ED and recommended that patient be started on dopamine and admitted to CCU. Sampler And Test Preparer: Lawson Garza MD - Allergies/Adverse Reactions Allergies Allergy/AdvReac Type Severity Reaction Status Date / Time lisinopril Allergy Verified 02/02/18: niacin Allergy Verified 02/02/18 01:26 - Home Medications Medication Instructions Recorded Confirmed Type Amlodipine [Norvasc] 2.5 mg PO DAILY 01/30/17 02/10/19 History Aspirin [Aspir-Low] 81 mg PO DAILY 01/30/17 02/09/19 History Clopidogrel Bisulfate [Plavix] 75 mg PO DAILY 01/30/17 02/09/19 History Famotidine [Pepcid] 20 mg PO BID 01/30/17 02/09/19 History Fenofibrate 108 mg PO DAILY 01/30/17 02/09/19 History Fluticasone Furoate [Flonase 9.9 ml NS DAILY 01/30/17 02/09/19 History Sensimist] Loratadine [Claritin] 10 mg PO DAILY 01/30/17 02/09/19 History Metoprolol Tartrate 50 mg PO DAILY 01/30/17 02/09/19 History Nitroglycerin [Nitrostat] 0.4 mg SL Q5MIN 01/30/17 02/09/19 History - History PMHx: CAD s/p MO and stent X5, HLD, HTN PSHx: hernia repair- left inguinal, cardiac stent placement FHx: CAD in parents and brother Social: occasionally drinks a few beers a day - Review of Systems General: denies: fever/chills, weight/appetite/sleep changes, night sweats Eyes: denies: eye pain, vision changes ENT: denies: nasal congestion, rhinorrhea Respiratory: denies: cough, congestion, shortness of breath Cardiovascular: reports: chest pain. denies: palpitation, edema, orthopnea Gastrointestinal: denies: nausea, vomiting, diarrhea, abdominal pain Genitourinary: denies: incontinence, dysuria Skin: denies: rashes, lesions Musculoskeletal: denies: pain, tenderness, stiffness, swelling Neurological: denies: numbness, seizure, weakness Psychological: denies: anxiety, depression - Vital signs BP: 167/99 HR: 116 RR: 12 Tmax: 97.3 Pox: 97% on RA Wt: 90 kg - Physical Exam Constitutional: NAD, awake, alert and oriented HEENT: normocephalic and atraumatic, PERRLA, EOMI, conjunctiva clear, TM's clear and intact, normal nasal mucosa, MMM Neck: supple, FROM, no JVD Chest: no-tender to palpation, no lesions Heart: normal S1/S2, no murmurs/rubs/gallops -Heart: tachycardic Lungs: CTAB, no respiratory distress, good air movement, no rales/rhonchi, no wheezing Abdomen: soft, non-tender, bowel sounds present Musculoskeletal: normal structure, normal tone Neurological: no focal deficit, CN II-XII intact Skin: no rash/lesions, good turgor, capillary refill <2 seconds Heme/Lymphatic: no unusual bruising or bleeding, no purpura, no petechia Psychiatric: normal mood and affect, good judgment and insight, intact recent and remote memory FMR H&P: Results - Labs Result Diagrams: 02/09/19 20:37 02/09/19 20:37 Lab results: WBC 12.3 thou/uL (4.8-10.8) H 02/09/19 20:37 Hgb 15.2 g/dL (14.0-18.0) 02/09/19 20:37 Hct 44.9 % (42.0-52.0) 02/09/19 20:37 MCV 90.0 fL (78.0-98.0) 02/09/19 20:37 Plt Count 236 thou/uL (130-400) 02/09/19 20:37 Neutrophils % 56.5 % (42.0-75.0) 02/09/19 20:37 Sodium 135 mmol/L (136-145) L 02/09/19 20:37 Potassium 3.9 mmol/L (3.5-5.1) 02/09/19 20:37 Chloride 105 mmol/L (98-107) 02/09/19 20:37 Carbon Dioxide 20 mmol/L (22-29) L 02/09/19 20:37 BUN 15 mg/dL (8.4-25.7) 02/09/19 20:37 Creatinine 1.13 mg/dL (0.7-1.3) 02/09/19 20:37 Glucose 129 mg/dL (70-105) H 02/09/19 20:37 Calcium 8.8 mg/dL (7.8-10.44) 02/09/19 20:37 Total Bilirubin 0.4 mg/dL (0.2-1.2) 02/09/19 20:37 AST 15 U/L (5-34) 02/09/19 20:37 ALT 18 U/L (8-55) 02/09/19 20:37 Alkaline Phosphatase 54 U/L (40-110) 02/09/19 20:37 Creatine Kinase 54 U/L (30-200) 02/09/19 20:37 CK-MB (CK-2) 1.7 ng/mL (0-6.6) 02/09/19 20:37 B-Natriuretic Peptide 61.5 pg/mL (0-100) 02/09/19 20:37 Serum Total Protein 6.8 g/dL (6.0-8.3) 02/09/19 20:37 Albumin 4.1 g/dL (3.5-5.0) 02/09/19 20:37 Lipase 41 U/L (8-78) 02/09/19 20:37 Urine Ketones Negative mg/dL (Negative) 02/09/19 21:23 Urine Blood Negative (Negative) 02/09/19 21:23 Urine Nitrite Negative (Negative) 02/09/19 21:23 Ur Leukocyte Esterase Negative Darvin/uL (Negative) 02/09/19 21:23 FMR H&P: A/P - Problem List (1) Complete heart block Current Visit: Yes Status: Acute Code(s): I44.2 - ATRIOVENTRICULAR BLOCK, COMPLETE (2) Hx of acute myocardial infarction Current Visit: Yes Status: Acute Code(s): I25.2 - OLD MYOCARDIAL INFARCTION (3) HTN (hypertension) Current Visit: Yes Status: Acute Code(s): I10 - ESSENTIAL (PRIMARY) HYPERTENSION (4) HLD (hyperlipidemia) Current Visit: Yes Status: Acute Code(s): E78.5 - HYPERLIPIDEMIA, UNSPECIFIED (5) History of CVA (cerebrovascular accident) Current Visit: Yes Status: Acute Code(s): Z86.73 - PRSNL HX OF TIA (TIA), AND CEREB INFRC W/O RESID DEFICITS - Plan Pt is a 58 yo male with PMH significant for MO s/p 5 stents, HTN, HLD, 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 Could be 2/2 new ischemia or old infarction. Pt was experiencing runs of PVC's. - Cardiology consulted; Dr. Ruby is aware of patient - Zoll ordered per Dr. Ruby - Dopamine drip - trend trops # HTN - held home meds # HLD - held home meds # Hx of MO s/p 5 stents - ASA - Cards Dr. Garza and Dr. Urrutia at [facility] # Hx of CVA Slurred speech deficit. - states he has worsening of symptoms 3-4 weeks ago. Unsure if this is secondary to atherosclerosis vs hypoperfusion due to complete heart block. Fluids: NS 120 mls/hr Diet: NPO VTE: lovenox Code: Full Dispo: > 48 hours, admit to CCU FMR H&P: Upper Level - Plan Date/Time: 02/09/192138 IGordon MD, have evaluated this patient and agree with findings/plan as outlined by network intern resident. Pertinent changes/additions are listed here. Jacob Deal is a 58 year old M with a PMH of CAD s/p MO and stent placement X5, hx of A fib who presented to the ED after several episodes of acute onset of feeling flushed, clammy, nauseous lasting anywhere from several seconds to a couple minutes. Sx started an hour [employer]. Associated dyspnea and dizziness. Pt called EMS and on the way to hospital, he developed symptoms again and his HR dropped down to 10 bpm at that time and resolved within a minute. Per ERMD, EMS 12 lead EKG showed complete heart block. In the ED, EKG showed NSR with HR of 66 , no ST changes. Dr. Simental was consulted from ED and recommended starting Dopamine drip. Patient was also given ASA and 2 L NS and Left Subclavian CVC was placed. Pt states he has been in his usual state of health prior to these episodes and denies any changes in medication or hx of similar symptoms. Labs on admission were significant for normal UA, UDS, serum drug screen. Na 135, CBC 12.5, otherwise CMP and CBC were wnl. BNP was normal. CXR was negative for any acute findings. On exam, patient had RRR with no murmurs, lungs CTAB, no LE edema. Patient is being admitted to CCU for suspected intermittent complete heart block. He is patient of Dr. Garza. Dr. Ruby consulted and recommended Zoll [employer]. Will trend cardiac enzymes. Continue dopamine gtt. Will follow cards recs. Anticipate hospital stay >48 hours. Please see network intern note above for full H&P, which I have reviewed and agree with.
[2019-02-09] MEDS ORDERED: Ondansetron PF 4 MG/2 ML Vial IVP PRN (22:51)
[2019-02-09] MEDS ORDERED: Ondansetron ODT 4 MG TAB SL PRN (22:51)
[2019-02-09] MEDS ORDERED: DOPamine 400 MG/D5W 250 ML 250 ML IVPB SCH (23:00)
[2019-02-09] MEDS ORDERED: Sodium Chloride 0.9% 1,000 ML IV SCH (23:00)
[2019-02-10 00:02] LABS: Troponin I Less than 0.010 ng/mL (< 0.028)
[2019-02-10 00:05] VITALS: BMI 27.8
[2019-02-10] MEDS: Sodium Chloride 0.9% 1,000 ML IV SCH ×2 (02:27→09:48)
--- NOTE | 2019-02-10 02:39 | CON ---
DATE OF CONSULTATION: 02/09/2019 INDICATION FOR CONSULTATION: A 58-year-old patient who has a history of coronary artery disease, underwent angioplasty with stent placement about [address] Garza and [facility], uncertain of which vessels these were. He has been followed up by the [facility]. He has not been following up with Dr. Garza, but Dr. Garza does take care of his . This gentleman also had been doing relatively well, but 34 weeks ago, he had an episode where he became aggravated and confused. He slept for a while and then was better. He now presents to the emergency room today after not feeling well, lightheaded, dizzy and somewhat confused. When he arrived, he was noted to have intermittent complete heart block. He had long pauses associated with the complete heart block. Since that time, he intermittently has sinus rhythm and third-degree AV heart block. He has been started on dopamine and his old pacemaker has been applied. He has not had used his old pacemaker yet. His heart rate is now in the one-teens to 120s with the dopamine; otherwise, he denied any significant chest pain, but he did have some chest pressure, which he describes as being 2/10. He denied any significant shortness of breath. He has had no significant chest pain. His first troponin I was 0.03 and decreased down to 0.01, not indicative of myocardial infarction. He has been told in the past that he had some arteries that were blocked and they were too small to intervened upon and he did have stents placed in the past and then he had stents that were restented in the same areas apparently. We are uncertain as to which vessels have been involved. I do not have any records to indicate, which vessels underwent angioplasty and stent placement. At this time he is comfortable and heart rate is stable. When he has long pauses and drops down to the 20s and 30s that he does have symptoms, but at this time, he has remained stable and blood pressure is also stable. PAST MEDICAL HISTORY: Significant for a mild CVA about a year ago when it was only minimal residual noted. He does have some mild weakness in the left arm, no significant residual otherwise. He had a history of coronary artery disease, underwent angioplasty and stent placement. He had a history of gastroesophageal reflux disease, history of hypertension, hypercholesterolemia. He has had three hernia repairs in the inguinal areas both bilateral. He has had a tumor removed from the back of his neck. FAMILY HISTORY: He had a brother, who of myocardial infarction at age 36. His father also had a myocardial infarction in his 30s and at age 67. His mother also in the 60s and also had some history of heart disease. SOCIAL HISTORY: He is . He smokes and continues to smoke half a pack a day and has done so for about 40 years. MEDICATIONS: Prior to admission include; 1. Aspirin. 2. Plavix. 3. Metoprolol. 4. Amlodipine. 5. Atorvastatin. ALLERGIES: HE DOES NOT HAVE ANY SIGNIFICANT ALLERGIES, BUT HE DOES HAVE INTOLERANCE TO NIACIN WELL LISINOPRIL, WHICH CAUSES A COUGH. REVIEW OF SYSTEMS: A 12-point review of systems is unremarkable except what is noted in the history of present illness. PHYSICAL EXAMINATION: GENERAL: Reveals a well-developed, well-nourished, very pleasant gentleman. He is alert and oriented. VITAL SIGNS: Blood pressure is now 154/88, heart rate at this moment is 109 and shows a sinus rhythm. He is afebrile. Respiratory rate is 24. HEENT: Shows the head to be normocephalic and atraumatic. Carotid pulses are present. There were no bruits. CHEST: Clear to auscultation. Did not hear any significant rales, rhonchi, or wheezing. CARDIOVASCULAR: Reveals a regular rate and rhythm at this time with a normal S1, S2. I do not hear any significant S3 or S4. There were no gross murmurs noted. ABDOMEN: Soft and nontender. Positive bowel sounds are present. No organomegaly or masses are palpable. EXTREMITIES: Showed no clubbing, cyanosis, or edema. They are warm. Pedal pulses are present. NEUROLOGIC: The patient appears to be fully intact. I cannot elicit any gross focal motor deficit at this time. PSYCHOSOCIAL: Also appears to be normal. LABORATORY DATA: Shows a WBC of 12.3, hemoglobin 15.2, platelet count was 236,000. His sodium is 135 with potassium of 3.9, BUN is 15 with a creatinine 1.13. Blood sugar was 129. As noted, the cardiac enzymes are indeterminate for myocardial infarction and most likely does not indicate an OR with the second set trending downwards to 0.01. There was no indication of illicit drug use. Alcohol level also was normal. IMPRESSION: 1. Intermittent complete heart block, which has now been stabilized with the dopamine. He seems to be tolerating this quite well. We most likely will need to undergo a pacemaker insertion due to the long pauses and the bradycardia that were associated with the complete heart block. He will also need to undergo an echocardiogram prior to proceeding with pacemaker insertion as he may have severe decrease in left ventricular systolic function. He has been followed by the [facility]. He saw them about 2 years ago where he had an echocardiogram and also had a stress test performed. The stress test apparently was unremarkable. He is uncertain about the echocardiogram. We will ask for a repeat echocardiogram tomorrow morning to evaluate the left ventricular systolic function prior to proceeding with pacemaker insertion. 2. History of coronary artery disease. He has undergone 5 stent placements in the past starting about 20 years ago. Based on that, he may have progression of coronary artery disease, and certainly involving the right coronary artery. He did have an artery according to the family on the right side, which may be the right coronary artery, which was diseased, but was too small to intervene upon. If he has had further disease in the right coronary artery, this may account for the complete heart block, but he has not had any significant chest pain. He did have chest pain when he had his previous myocardial infarctions and he did have myocardial infarction at the time of the stent placements in the past. We will await the results of the echocardiogram prior to making further decisions. He may need to undergo cardiac catheterization prior to the pacemaker insertion or vice versa should he become more unstable. 3. History of cerebrovascular accident in the past. He appears stable at this time. I do not see any significant abnormalities. 4. History of hypertension. Blood pressure is slightly elevated, but he is on dopamine at this time. 5. Hypercholesterolemia. We would suggest that he continue taking his statin medications. Further care of the patient will be by Dr. Garza when he visits with him tomorrow. At this time, we will keep the patient n.p.o. Plan for an echocardiogram. Plan for probable pacemaker insertion and/or possible cardiac catheterization. Job ID: [id number]
[2019-02-10 05:52] LABS: Anion Gap 11 mmol/L (10-20); BUN (Urea Nitrogen) 18 mg/dL (8.4-25.7); Calc. Creatinine Clearance 116 mL/min (70-130); Calcium 8.5 mg/dL (7.8-10.44); Carbon Dioxide 26 mmol/L (22-29); Chloride 103 mmol/L (98-107); Estimated GFR-MDRD Greater than 90; Glucose 221 mg/dL (70-105); Potassium 4.4 mmol/L (3.5-5.1); Sodium 136 mmol/L (136-145)
[2019-02-10 06:00] LABS: Troponin I 0.209 ng/mL (< 0.028)
[2019-02-10 07:10] LABS: #Basophils 0.1 thou/uL (0.0-0.2); #Eosinphils 0.1 thou/uL (0.0-0.7); #Lymphocytes 4.3 thou/uL (1.20-3.40); #Neutrophils 9.9 thou/uL (1.40-6.50); %Basophils 0.3 % (0.0-1.0); %Eosinophils 0.5 % (0.0-10.0); %Lymphocytes 27.9 % (21.0-51.0); %Monocytes 6.3 % (0.0-10.0); Hemoglobin 15.7 g/dL (14.0-18.0); Mean Corpuscular HGB CONC 34.9 g/dL (32.0-36.0); Mean Corpuscular Hemoglobin 31.6 pg (27.0-31.0); Mean Corpuscular Volume 90.5 fL (78.0-98.0); Mean Platelet Volume 7.4 fL (7.4-10.4); Platelet Count 236 thou/uL (130-400); RBC Distribution Width 12.1 % (11.5-14.5); Red Blood Cell (RBC) Count 4.97 mill/uL (4.70-6.10); White Blood Cell (WBC) Count 15.3 thou/uL (4.8-10.8)
--- NOTE | 2019-02-10 07:23 | PDOC.FM ---
- Subjective Subjective: pt feeling well this AM. nurse reports no episodes of heart block since admission. No acute issues. pt is NPO. - Objective Vital Signs & Weight: Vital Signs (12 hours) Temp Pulse Ox 02/10/19 04:00 97.3 F L 02/10/19 00:14 98 02/10/19 00:00 98.3 F 02/09/19 22:45 100 Weight Weight 87.8 kg Most Recent Monitor Data Heart Rate from ECG 100 NIBP 126/77 NIBP BP-Mean 93 Respiration from ECG 17 SpO2 99 I&O: 02/09/19 02/10/19 02/11/19 06:59 06:59 06:59 Intake Total 719 Output Total 1200 Balance -481 Result Diagrams: 02/10/19 06:38 02/10/19 05:06 Phys Exam - Physical Examination Constitutional: NAD HEENT: moist MMs, sclera anicteric Neck: no JVD, supple Respiratory: no wheezing, clear to auscultation bilateral Cardiovascular: RRR, no significant murmur Gastrointestinal: soft, non-tender Musculoskeletal: no edema, pulses present Neurological: normal sensation, moves all 4 limbs Psychiatric: normal affect, A&O x 3 Skin: no rash, normal turgor Dx/Plan (1) Complete heart block Code(s): I44.2 - ATRIOVENTRICULAR BLOCK, COMPLETE Status: Acute (2) HLD (hyperlipidemia) Code(s): E78.5 - HYPERLIPIDEMIA, UNSPECIFIED Status: Acute (3) HTN (hypertension) Code(s): I10 - ESSENTIAL (PRIMARY) HYPERTENSION Status: Acute (4) History of CVA (cerebrovascular accident) Code(s): Z86.73 - PRSNL HX OF TIA (TIA), AND CEREB INFRC W/O RESID DEFICITS Status: Acute (5) Hx of acute myocardial infarction Code(s): I25.2 - OLD MYOCARDIAL INFARCTION Status: Acute - Plan Plan: Intermittent Complete Heart Block A- Stable since admission. Cardiology consulted, appreciate recs P- Zoll ordered per Dr. Ruby -Dopamine drip -Echo today -likely pacer placed today Hx of MA s/p 5 stents A- Cards Dr. Garza and Dr. Urrutia at [place] P- plans for possible cath, mgmt per cards -continue home ASA HTN -after procedures will restart home meds HLD -after procedures will restart home meds Hx of CVA -baseline Slurred speech deficit. VTE PPx: lovenox Code: Full
[2019-02-10] MEDS ORDERED: Aspirin 325 MG TAB PO SCH (08:00)
[2019-02-10] MEDS ORDERED: CEFAZOLIN 1 GM VIAL ONE (10:22)
[2019-02-10] MEDS ORDERED: Gentamicin 80 MG/2 ML VIAL ONE (10:22)
[2019-02-10] MEDS: Acetaminophen 500 MG TAB PO PRN (10:38)
--- NOTE | 2019-02-10 11:20 | CON ---
DATE OF CONSULTATION: 02/10/2019 REASON FOR CONSULTATION: ICU management. HISTORY OF PRESENT ILLNESS: This is a 58-year-old male, who came into the hospital yesterday after feeling dizzy and diaphoretic at home. He came in, was found to be profoundly bradycardic with heart rate as low as 10. He was placed on dopamine. Cardiology has been consulted and a pacemaker is planned for later today. PAST MEDICAL HISTORY: 1. Coronary artery disease requiring stent placement x5. 2. Hyperlipidemia. 3. Hypertension. PAST SURGICAL HISTORY: He has had hernia repair and five stent placements. FAMILY MEDICAL HISTORY: Remarkable for coronary artery disease and multiple cardiac deaths in his family. SOCIAL HISTORY: Smokes about half pack per day. Drinks six beers every two days. 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 MEDICATIONS: Prior to admission, 1. Norvasc. 2. Fenofibrate. 3. Pepcid. 4. Plavix. 5. Aspirin. 6. Metoprolol. 7. Claritin. 8. Fluticasone. 9. Nitroglycerin. Current inpatient medications; 1. Aspirin. 2. Dopamine. 3. Lovenox. REVIEW OF SYSTEMS: Twelve-point review of systems is otherwise negative. PHYSICAL EXAMINATION: VITAL SIGNS: Temperature 98, pulse 84, blood pressure 153/95, and O2 saturation 100%. GENERAL: The patient is awake, alert, in no distress. HEENT: Pupils react. Sclerae anicteric. Oropharynx clear. NECK: No adenopathy or JVD. CHEST: Clear to auscultation without wheezing or rhonchi. CARDIAC: S1 and S2 regular on a dopamine drip. ABDOMEN: Soft and nontender. EXTREMITIES: No clubbing, cyanosis, edema. NEUROLOGIC: Nonfocal. LABORATORY DATA: White blood cell count 15.3, hematocrit 45, platelet count 236. Sodium 136, potassium 4.4, chloride 103, CO2 of 26, BUN 18, creatinine 0.8, glucose 221. Troponin 0.209. Tox screen negative. ASSESSMENT: Bradycardia. PLAN: Pacemaker placement planned. No acute pulmonary need at this time. The patient was cautioned not to smoke. Job ID: [id number]
--- NOTE | 2019-02-10 11:45 | PDOC.CPN ---
- Subjective Date: 02/10/19 Time: 11:46 Interval history: The pt seen and examined. No overnight events. No cardiac complaints. - Objective Allergies/Adverse Reactions: Allergies Allergy/AdvReac Type Severity Reaction Status Date / Time lisinopril Allergy Verified 02/02/18 01:26 niacin Allergy Verified 02/02/18 01:26 Visit Medications: Current Medications Acetaminophen (Tylenol) 1,000 mg PO Q6H PRN PRN Reason: Moderate to Severe Pain (6-10) Last Admin: 02/10/19 10:38 Dose: 1,000 mg Enoxaparin Sodium (Lovenox) 40 mg SC 0900 TREVOR Dopamine HCl/Dextrose (Dopamine 400 Mg/D5w 250 Ml) 250 mls @ 0 mls/hr IVPB INF TREVOR; Protocol Sodium Chloride (Normal Saline 0.9%) 1,000 mls @ 100 mls/hr IV .Q10H TREVOR Last Admin: 02/10/19 09:48 Dose: 1,000 mls Sodium Chloride (Flush - Normal Saline) 10 ml IVF Q12HR TREVOR Last Admin: 02/10/19 08:35 Dose: 10 ml Sodium Chloride (Flush - Normal Saline) 10 ml IVF PRN PRN PRN Reason: Saline Flush Vital Signs & Weight: Vital Signs Temp Pulse Ox 02/10/19 08:00 98 F 02/10/19 07:48 99 02/10/19 04:00 97.3 F L 02/10/19 00:14 98 02/10/19 00:00 98.3 F Weight 193 lb 9.054 oz - Physical Exam General: alert & oriented x3 HEENT: mucus membranes moist Neck: supple neck Cardiac: regular rate and rhythm, S1/S2 Lungs: clear to auscultation - Labs Result Diagrams: 02/10/19 06:38 02/10/19 05:06 Troponin/CKMB CK-MB (CK-2) 1.7 ng/mL (0-6.6) 02/09/19 20:37 Troponin I 0.209 ng/mL (< 0.028) H 02/10/19 05:06 - Assessment/Plan Assessment/Plan: 1. Intermittent Complete Heart Block - stable with Dopamine drip; plan for PM placement by Dr Ruby today 2. CAD with hx of total 5 stents about 20 years ago - will resume bblocker, ASA , and Plavix once the pt is stable 3. HTN - stable 4. HLD - 5. Hx of CVA with mild Lt arm weakness 6. Tobacco and ETOH abuse - strongly recommend smoking and ETOH cessation MAR reviewed * Echo on 02/10/2019 with EF 55-60%, mild LVH, inferior hypokinesis, trace TR Pt. seen and eval. by me. I agree with the A/P by the SWATCH PASTER. Pacemaker insertion today for CHB. Plan on stress test or cardiac cath in near future to r/o progression of CAD. Per the prior cath notes he had CHB with closure of the RCA. Chest clear. RRR.
[2019-02-10] MEDS ORDERED: Fentanyl 100 MCG/2 ML VIAL ONE (14:35)
[2019-02-10] MEDS ORDERED: Midazolam HCl 2 mg/2 ml Vial ONE ×2 (14:35→15:12)
[2019-02-10] MEDS ORDERED: Morphine 2 MG/ML SYRINGE ONE (15:39)
[2019-02-10] MEDS: Enoxaparin Sodium 40 MG/0.4 ML SYRINGE SC SCH (16:57)
--- NOTE | 2019-02-10 19:38 | RAD ---
EXAM: XR Chest 1 View Portable PROVIDED CLINICAL HISTORY: Post cardiac device placement COMPARISON: 02/09/2019 FINDINGS: Interval placement left subclavian cardiac pacing device with lead tips overlying expected locations of RA and RV. Interval removal of central line. Additional significant interval change with respect to prior examination is not apparent. IMPRESSION: Post cardiac device placement without evidence for complication.
--- NOTE | 2019-02-10 20:43 | CCL ---
DATE OF PROCEDURE: 02/10/18 This is a 58-year-old patient with history of coronary artery disease who developed third degree AV h eart block with severe pauses. He was advised to undergo dual chamber pacemaker insertion. He was wojciech en to the [facility] where he was prepped and draped in the sterile fashion and underwent the p rocedure without difficulties or complications. He was implanted with a dual chamber pacemaker from [employer], an Barbara XT device which is MRI compatible. Two screw-in leads were placed. One in the atri um and one in the ventricle. There were no significant complications or difficulties. The patient evelin erated the procedure well. He did require significant amount of anesthesia for the procedure in the f orm of IV versed as well as morphine and fentanyl to alleviate severe back pain. Otherwise, he tolera olivia the procedure well. He remained conscious throughout the procedure. At the end of the procedure t here was a left subclavian line and also a central line that was also removed. The previous Dopamine infusion the patient was on was discontinued. Pacemaker was set with the upper rate of 120 and lower rate was set at 60.
[2019-02-10] MEDS: Cephalexin 250 MG CAP PO SCH (21:01)
[2019-02-10] MEDS: Metoprolol Tartrate 25 MG TAB PO SCH (21:02)
[2019-02-11] MEDS: Acetaminophen 500 MG TAB PO PRN (00:05)
[2019-02-11] MEDS: Sodium Chloride 0.9% 1,000 ML IV SCH ×2 (00:54→08:34)
[2019-02-11 03:48] LABS: #Eosinphils 0.1 thou/uL (0.0-0.7); #Lymphocytes 4.4 thou/uL (1.20-3.40); #Monocytes 0.9 thou/uL (0.11-0.59); #Neutrophils 6.4 thou/uL (1.40-6.50); %Basophils 0.2 % (0.0-1.0); %Monocytes 7.6 % (0.0-10.0); %Neutrophils 54.1 % (42.0-75.0); Hemoglobin 14.3 g/dL (14.0-18.0); Mean Corpuscular HGB CONC 33.9 g/dL (32.0-36.0); Mean Corpuscular Hemoglobin 30.6 pg (27.0-31.0); Mean Corpuscular Volume 90.4 fL (78.0-98.0); Mean Platelet Volume 7.4 fL (7.4-10.4); Platelet Count 223 thou/uL (130-400); RBC Distribution Width 12.2 % (11.5-14.5); Red Blood Cell (RBC) Count 4.67 mill/uL (4.70-6.10); White Blood Cell (WBC) Count 11.8 thou/uL (4.8-10.8)
[2019-02-11 04:18] LABS: Anion Gap 13 mmol/L (10-20); BUN (Urea Nitrogen) 18 mg/dL (8.4-25.7); Calc. Creatinine Clearance 98 mL/min (70-130); Calcium 8.5 mg/dL (7.8-10.44); Carbon Dioxide 24 mmol/L (22-29); Chloride 107 mmol/L (98-107); Estimated GFR-MDRD 76; Glucose 186 mg/dL (70-105); Potassium 3.5 mmol/L (3.5-5.1); Sodium 140 mmol/L (136-145)
--- NOTE | 2019-02-11 06:49 | PDOC.FM ---
- Subjective Subjective: resting well, he is a little bit tender over the pacer placement site but otherwise no complaints, no CP/SOB - Objective Vital Signs & Weight: Vital Signs (12 hours) Temp Pulse Ox 02/11/19 04:00 98.7 F 02/11/19 00:00 98.5 F 02/10/19 20:00 98.4 F 99 Weight Weight 87.8 kg Most Recent Monitor Data Heart Rate from ECG 70 NIBP 147/89 NIBP BP-Mean 108 Respiration from ECG 19 SpO2 99 I&O: 02/09/19 02/10/19 02/11/19 06:59 06:59 06:59 Intake Total 719 3435 Output Total 1200 1875 Balance -481 1560 Result Diagrams: 02/11/19 03:16 02/11/19 03:16 Phys Exam - Physical Examination Constitutional: NAD HEENT: moist MMs, sclera anicteric Neck: no JVD, supple Respiratory: no wheezing, clear to auscultation bilateral Cardiovascular: RRR, no significant murmur Gastrointestinal: soft, non-tender Musculoskeletal: no edema, pulses present Neurological: normal sensation, moves all 4 limbs Psychiatric: normal affect, A&O x 3 Skin: no rash, normal turgor Dx/Plan (1) Complete heart block Code(s): I44.2 - ATRIOVENTRICULAR BLOCK, COMPLETE Status: Acute (2) HLD (hyperlipidemia) Code(s): E78.5 - HYPERLIPIDEMIA, UNSPECIFIED Status: Acute (3) HTN (hypertension) Code(s): I10 - ESSENTIAL (PRIMARY) HYPERTENSION Status: Acute (4) History of CVA (cerebrovascular accident) Code(s): Z86.73 - PRSNL HX OF TIA (TIA), AND CEREB INFRC W/O RESID DEFICITS Status: Acute (5) Hx of acute myocardial infarction Code(s): I25.2 - OLD MYOCARDIAL INFARCTION Status: Acute - Plan Plan: Intermittent Complete Heart Block A- Stable since admission. Cardiology consulted, appreciate mgmt. Pacer placed yesterday. P- pt stable -possibly ready for DC home today -f/u cards recs Hx of [place] s/p 5 stents A- Cards Dr. Garza and Dr. Urrutia at [facility] P- plans for possible cath vs. stress vs. f/u outpt, mgmt per cards -continue home ASA HTN -home meds HLD -home meds Hx of CVA -baseline Slurred speech deficit. VTE PPx: will restart pts plavix soon Code: Full
[2019-02-11] MEDS: Enoxaparin Sodium 40 MG/0.4 ML SYRINGE SC SCH (07:49)
[2019-02-11] MEDS: Cephalexin 250 MG CAP PO SCH ×2 (07:50→14:05)
[2019-02-11] MEDS: Metoprolol Tartrate 25 MG TAB PO SCH (07:50)
--- NOTE | 2019-02-11 08:17 | PRG ---
DATE OF SERVICE: 02/11/2019 SUBJECTIVE: Mr. Deal had a pacemaker placed yesterday. It is capturing when he becomes bradycardic. He has no complaints. OBJECTIVE: VITAL SIGNS: Temperature 97.7, pulse 72, blood pressure 140/89, O2 saturation 99%. HEENT: Unremarkable. NECK: No adenopathy or JVD. LUNGS: Clear. CARDIAC: S1 and S2, regular. ABDOMEN: Soft. EXTREMITIES: No edema. ASSESSMENT: Bradycardia, now has pacemaker. PLAN: Can be transferred to telemetry or even possibly be discharged today. No further Pulmonary recommendations. We will sign off. Job ID: [id number]
[2019-02-11] MEDS ORDERED: Amlodipine 5 MG TAB PO SCH (09:00)
[2019-02-11 12:12] VITALS: TEMP 97.9
--- NOTE | 2019-02-11 12:14 | PDOC.CPN ---
- Subjective Date: 02/11/19 Time: 12:15 - Review of Systems General: denies: fever/chills, weight/appetite/sleep changes, night sweats, fatigue Respiratory: denies: cough, congestion, shortness of breath, exercise intolerance Cardiovascular: denies: chest pain, palpitation, edema, paroxysmal nocturnal dyspnea, orthopnea Gastrointestinal: denies: nausea, vomiting, diarrhea, constipation, abd pain, GI bleeding Musculoskeletal: denies: pain, tenderness, stiffness, swelling, arthritis/ arthralgias Neurological: denies: numbness, syncope, seizure, weakness - Objective Allergies/Adverse Reactions: Allergies Allergy/AdvReac Type Severity Reaction Status Date / Time lisinopril Allergy Verified 02/02/18 01: niacin Allergy Verified 02/02/18 01:26 Visit Medications: Current Medications Acetaminophen (Tylenol) 1,000 mg PO Q6H PRN PRN Reason: Moderate to Severe Pain (6-10) Last Admin: 02/11/19 00:05 Dose: 1,000 mg Amlodipine Besylate (Norvasc) 2.5 mg PO DAILY [facility] Last Admin: 02/11/19 10:00 Dose: 2.5 mg Cephalexin (Keflex) 250 mg PO TID [facility] Stop: 02/20/19 21:01 Last Admin: 02/11/19 07:50 Dose: 250 mg Enoxaparin Sodium (Lovenox) 40 mg SC 0900 [facility] Last Admin: 02/11/19 07:49 Dose: Not Given Sodium Chloride (Normal Saline 0.9%) 1,000 mls @ 100 mls/hr IV .Q10H [facility] Last Admin: 02/11/19 08:34 Dose: Not Given Metoprolol Tartrate (Lopressor) 25 mg PO BID [facility] Last Admin: 02/11/19 07:50 Dose: 25 mg Sodium Chloride (Flush - Normal Saline) 10 ml IVF Q12HR [facility] Last Admin: 02/11/19 07:50 Dose: 10 ml Sodium Chloride (Flush - Normal Saline) 10 ml IVF PRN PRN PRN Reason: Saline Flush Vital Signs & Weight: Vital Signs Temp Pulse BP Pulse Ox 02/11/19 10:00 70 159/94 H 02/11/19 08:00 100 02/11/19 07:00 97.7 F 02/11/19 04:00 98.7 F Weight 193 lb 9.054 oz - Quality Measures CV meds: Beta Rg: Yes, YONY/ARB: No (EF normal), Statin: Yes, ASA: Yes - Physical Exam General: no apparent distress HEENT: normocephaly Neck: no JVD/HJR, no bruit Cardiac: no murmur, regular rate, regular rhythm Lungs: clear to auscultation Neuro: grossly intact Abdomen: unremarkable Extremities: no edema Musculoskeletal: normal range of motion - Labs Result Diagrams: 02/11/19 03:16 02/11/19 03:16 Troponin/CKMB CK-MB (CK-2) 1.7 ng/mL (0-6.6) 02/09/19 20:37 Troponin I 0.209 ng/mL (< 0.028) H 02/10/19 05:06 - EKG Interpretation EKG shows: sinus rhythm (occasional paced beat.) - Assessment/Plan Assessment/Plan: 1. Intermittent Complete Heart Block - stable after permanent placement yesterday, no pneumo or hemothorax or complications post pacemaker. 2. CAD with hx of total 5 stents about 20 years ago - will resume bblocker, ASA , and Plavix once the pt is stable. [facility]. He is asymptomatic at this time. 3. HTN - stable 4. HLD - resume lipitor, he has this at home. 5. Hx of CVA with mild Lt arm weakness 6. Tobacco and ETOH abuse - strongly recommend smoking and ETOH cessation MAR reviewed * Echo on 02/10/2019 with EF 55-60%, mild LVH, inferior hypokinesis, trace TR Okay from a cardiac standpoint to d/c pt. to home today. lionel.
[2019-02-11 13:11] VITALS: BP 161/94
== END 2019-02-11 14:20 | disposition home or self-care (01) | DRG 244 ==
LOC: ERS 20:25 → CCU 21:54
PROVIDERS: ADMIT Student in an Organized Health Care Education/Training Program; ATTEND Student in an Organized Health Care Education/Training Program
PROC: 0JH606Z Insertion of Pacemaker, Dual Chamber into Chest Subcutaneous Tissue and Fascia, Open Approach (ICD-10-PCS; principal; 2019-02-10)
PROC: 02HK3JZ Insertion of Pacemaker Lead into Right Ventricle, Percutaneous Approach (ICD-10-PCS; 2019-02-10)
PROC: 02H63JZ Insertion of Pacemaker Lead into Right Atrium, Percutaneous Approach (ICD-10-PCS; 2019-02-10)
PROC: 4A023N7 Measurement of Cardiac Sampling and Pressure, Left Heart, Percutaneous Approach (ICD-10-PCS; 2019-02-10)
DX: I44.2 Atrioventricular block, complete (principal); I48.91 Unspecified atrial fibrillation; I25.10 Atherosclerotic heart disease of native coronary artery without angina pectoris; E78.5 Hyperlipidemia, unspecified; I10 Essential (primary) hypertension; E78.00 Pure hypercholesterolemia, unspecified; K21.9 Gastro-esophageal reflux disease without esophagitis; F10.10 Alcohol abuse, uncomplicated; F17.210 Nicotine dependence, cigarettes, uncomplicated; Z79.01 Long term (current) use of anticoagulants; Z95.5 Presence of coronary angioplasty implant and graft; I25.2 Old myocardial infarction; Z86.73 Personal history of transient ischemic attack (TIA), and cerebral infarction without residual deficits; Z88.8 Allergy status to other drugs, medicaments and biological substances
CPT/HCPCS: 36415; 71045; 80048; 80053; 80306; 80307; 81003; 82550; 82553; 83690; 83880; 84484; 85025; 93005; 93306; 93798; C1785; C1898; J0690; J1265; J1580; J2250; J2270; J3010

== ENCOUNTER 2019-03-09 11:16 | Emergency (ER) | payer OTHER ==
[2019-03-09 12:12] LABS: #Basophils 0.1 thou/uL (0.0-0.2); #Eosinphils 0.2 thou/uL (0.0-0.7); #Lymphocytes 5.1 thou/uL (1.20-3.40); #Monocytes 0.9 thou/uL (0.11-0.59); #Neutrophils 5.3 thou/uL (1.40-6.50); %Basophils 0.7 % (0.0-1.0); %Eosinophils 1.8 % (0.0-10.0); %Monocytes 7.7 % (0.0-10.0); %Neutrophils 45.8 % (42.0-75.0); Hemoglobin 15.4 g/dL (14.0-18.0); Mean Corpuscular HGB CONC 33.1 g/dL (32.0-36.0); Mean Corpuscular Hemoglobin 29.7 pg (27.0-31.0); Mean Corpuscular Volume 89.9 fL (78.0-98.0); Platelet Count 271 thou/uL (130-400); RBC Distribution Width 11.9 % (11.5-14.5); Red Blood Cell (RBC) Count 5.19 mill/uL (4.70-6.10); White Blood Cell (WBC) Count 11.5 thou/uL (4.8-10.8)
--- NOTE | 2019-03-09 12:19 | RAD ---
EXAM: Single view of the chest HISTORY: Intermittent facial tingling and facial pressure COMPARISON: 02/10/2019 FINDINGS: Single view of the chest shows a normal sized cardiomediastinal silhouette. The pacemaker is unchanged in position. There is no evidence of consolidation, mass, or pleural effusion. The bones are unremarkable. IMPRESSION: No evidence of acute cardiopulmonary disease
[2019-03-09 12:38] LABS: ALT (SGPT) 18 U/L (8-55); AST (SGOT) 16 U/L (5-34); Albumin 4.5 g/dL (3.5-5.0); Alkaline Phosphatase 57 U/L (40-110); Anion Gap 13 mmol/L (10-20); BUN (Urea Nitrogen) 10 mg/dL (8.4-25.7); Bilirubin, Total 0.5 mg/dL (0.2-1.2); Calc. Creatinine Clearance 0 mL/min (70-130); Carbon Dioxide 25 mmol/L (22-29); Chloride 108 mmol/L (98-107); Estimated GFR-MDRD 70; Globulin 2.6 g/dL (2.4-3.5); Glucose 107 mg/dL (70-105); Potassium 4.3 mmol/L (3.5-5.1); Protein, Total 7.1 g/dL (6.0-8.3); Sodium 142 mmol/L (136-145)
== END 2019-03-09 14:35 | disposition home or self-care (01) ==
LOC: ERS 11:16
DX: R55 Syncope and collapse (principal); I25.10 Atherosclerotic heart disease of native coronary artery without angina pectoris; I25.2 Old myocardial infarction; E78.5 Hyperlipidemia, unspecified; E78.00 Pure hypercholesterolemia, unspecified; I10 Essential (primary) hypertension; Z86.73 Personal history of transient ischemic attack (TIA), and cerebral infarction without residual deficits; Z79.82 Long term (current) use of aspirin; Z79.899 Other long term (current) drug therapy; Z87.891 Personal history of nicotine dependence
CPT/HCPCS: 36415; 71045; 80053; 83880; 84484; 85025; 93005

== ENCOUNTER 2020-02-06 02:15 | Emergency (ER) | payer OTHER ==
[2020-02-06 02:49] LABS: #Basophils 0.1 thou/uL (0.0-0.2); #Eosinphils 0.2 thou/uL (0.0-0.7); #Lymphocytes 5.7 thou/uL (1.20-3.40); #Monocytes 0.8 thou/uL (0.11-0.59); #Neutrophils 4.8 thou/uL (1.40-6.50); %Basophils 0.5 % (0.0-1.0); %Lymphocytes 49.2 % (21.0-51.0); %Monocytes 7.2 % (0.0-10.0); %Neutrophils 41.2 % (42.0-75.0); Mean Corpuscular HGB CONC 33.5 g/dL (32.0-36.0); Mean Corpuscular Hemoglobin 29.7 pg (27.0-31.0); Mean Corpuscular Volume 88.8 fL (78.0-98.0); Platelet Count 251 thou/uL (130-400); RBC Distribution Width 12.4 % (11.5-14.5); Red Blood Cell (RBC) Count 5.05 mill/uL (4.70-6.10); White Blood Cell (WBC) Count 11.6 thou/uL (4.8-10.8)
[2020-02-06 03:04] LABS: ALT (SGPT) 13 U/L (8-55); AST (SGOT) 13 U/L (5-34); Alkaline Phosphatase 53 U/L (40-110); Anion Gap 15 mmol/L (10-20); BUN (Urea Nitrogen) 18 mg/dL (8.4-25.7); Bilirubin, Total 0.4 mg/dL (0.2-1.2); Calc. Creatinine Clearance 0 mL/min (70-130); Calcium 9.1 mg/dL (7.8-10.44); Carbon Dioxide 23 mmol/L (23-31); Chloride 104 mmol/L (98-107); Globulin 2.9 g/dL (2.4-3.5); Glucose 168 mg/dL (80-115); Potassium 3.3 mmol/L (3.5-5.1); Protein, Total 6.9 g/dL (5.8-8.1); Sodium 139 mmol/L (136-145)
[2020-02-06 06:48] LABS: SARS-CoV-2 NAA Rapid Test Not Detected (NotDetected)
--- NOTE | 2020-02-06 07:52 | RAD ---
XR Chest 1 View Portable HISTORY: Chest pain COMPARISON: 03/09/2019 FINDINGS: The heart size is normal. The aorta is tortuous. Left-sided pacemaker device remains in murtaza ce. The lungs are well expanded without focal areas of consolidation, pneumothorax or pleural effusions. IMPRESSION: No radiographic evidence of acute cardiopulmonary process.
== END 2020-02-06 05:40 | disposition short-term general hospital (02) ==
LOC: ERS 02:15
DX: I25.110 Atherosclerotic heart disease of native coronary artery with unstable angina pectoris (principal); I25.2 Old myocardial infarction; E78.5 Hyperlipidemia, unspecified; E78.00 Pure hypercholesterolemia, unspecified; I10 Essential (primary) hypertension; Z86.73 Personal history of transient ischemic attack (TIA), and cerebral infarction without residual deficits; Z87.891 Personal history of nicotine dependence; Z79.899 Other long term (current) drug therapy; Z79.82 Long term (current) use of aspirin
CPT/HCPCS: 36415; 71045; 80053; 84484; 85025; 93005; U0002

== ENCOUNTER 2020-11-09 12:00 | Emergency (ER) | payer OTHER | END 2020-11-09 13:55 | disposition home or self-care (01) | LOC: ERS 12:00 | DX: T46.5X1A Poisoning by other antihypertensive drugs, accidental (unintentional), initial encounter (principal); I10 Essential (primary) hypertension; I49.9 Cardiac arrhythmia, unspecified; I25.10 Atherosclerotic heart disease of native coronary artery without angina pectoris; I25.2 Old myocardial infarction; E78.5 Hyperlipidemia, unspecified; E78.00 Pure hypercholesterolemia, unspecified; Z86.73 Personal history of transient ischemic attack (TIA), and cerebral infarction without residual deficits; Z87.891 Personal history of nicotine dependence; Z79.82 Long term (current) use of aspirin; Z79.899 Other long term (current) drug therapy; Z95.5 Presence of coronary angioplasty implant and graft | CPT/HCPCS: 93005 ==

== ENCOUNTER 2021-02-19 23:06 | Emergency (ER) | payer OTHER ==
[2021-02-19] MEDS ORDERED: Nitroglycerin 2% Ointment 1 INCH/1 GM Packet ONE (23:43)
[2021-02-20 00:07] LABS: Hemoglobin 14.8 g/dL (14.0-18.0); Mean Corpuscular HGB CONC 34.5 g/dL (32.0-36.0); Mean Corpuscular Hemoglobin 31.3 pg (27.0-31.0); Mean Corpuscular Volume 90.7 fL (78.0-98.0); Mean Platelet Volume 6.9 fL (7.4-10.4); Platelet Count 277 thou/uL (130-400); RBC Distribution Width 12.8 % (11.5-14.5); Red Blood Cell (RBC) Count 4.73 mill/uL (4.70-6.10); White Blood Cell (WBC) Count 11.7 thou/uL (4.8-10.8)
[2021-02-20 00:21] LABS: Lymphocytes 65 % (21-51); MDiff Complete? YES; Neutrophil 35 % (42-75); Platelet Morphology Comment Appears Adequate; RBC Morphology Normal
[2021-02-20 00:52] LABS: ALT (SGPT) 23 U/L (8-55); AST (SGOT) 18 U/L (5-34); Albumin 3.9 g/dL (3.4-4.8); Alkaline Phosphatase 59 U/L (40-110); Anion Gap 19 mmol/L (10-20); BUN (Urea Nitrogen) 12 mg/dL (8.4-25.7); Bilirubin, Total 0.3 mg/dL (0.2-1.2); Calc. Creatinine Clearance 0 mL/min (70-130); Calcium 9.6 mg/dL (7.8-10.44); Carbon Dioxide 17 mmol/L (23-31); Chloride 103 mmol/L (98-107); Globulin 2.8 g/dL (2.4-3.5); Glucose 182 mg/dL (80-115); Potassium 3.5 mmol/L (3.5-5.1); Protein, Total 6.7 g/dL (5.8-8.1); Sodium 135 mmol/L (136-145)
[2021-02-20 01:57] LABS: SARS-CoV-2 NAA Rapid Test Not Detected (NotDetected)
[2021-02-20 03:50] LABS: Troponin I Less than 0.010 ng/mL (< 0.028)
== END 2021-02-20 04:17 | disposition short-term general hospital (02) ==
LOC: ERS 23:06
DX: I20.0 Unstable angina (principal); R07.2 Precordial pain; I49.1 Atrial premature depolarization; I10 Essential (primary) hypertension; E78.5 Hyperlipidemia, unspecified; E78.00 Pure hypercholesterolemia, unspecified; I25.2 Old myocardial infarction; Z20.822 Contact with and (suspected) exposure to COVID-19; Z87.891 Personal history of nicotine dependence; Z86.73 Personal history of transient ischemic attack (TIA), and cerebral infarction without residual deficits; Z95.5 Presence of coronary angioplasty implant and graft
CPT/HCPCS: 36415; 71045; 80053; 84484; 85025; 93005; U0002

== ENCOUNTER 2022-09-08 00:17 | Observation (INO) | payer OTHER ==
[2022-09-08 00:52] LABS: Hemoglobin 16.1 g/dL (14.0-18.0); Mean Corpuscular HGB CONC 34.5 g/dL (32.0-36.0); Mean Corpuscular Hemoglobin 30.8 pg (27.0-31.0); Mean Corpuscular Volume 89.5 fl (78.0-98.0); Mean Platelet Volume 10.1 fL (7.4-10.4); Platelet Count 358 10x3/uL (130-400); RBC Distribution Width 13.7 % (11.5-14.5); Red Blood Cell (RBC) Count 5.22 mill/uL (4.70-6.10)
[2022-09-08 00:55] LABS: Delete Auto Diff?? YES; Manual Diff?? YES
[2022-09-08] MEDS ORDERED: dilTIAZem 25 MG/5 ML VIAL ONE (01:13)
[2022-09-08 01:16] LABS: CellaVision Operator ID lab.abc; Eosinophils 1 % (0-10); Lymphocytes 30 % (21-51); Monocytes 5 % (0-10); Neutrophil 54 % (42-75); Platelet Adequacy Comment Platelets Normal; RBC Morphology Within Normal Limits; Reactive Lymphocytes 10 % (0-10); Smudge Cells 51.5 %; Total Cell Count 101
[2022-09-08] MEDS ORDERED: dilTIAZem 125 MG/25 ML SDV ONE (01:27)
[2022-09-08 01:35] LABS: CKMB 3.3 ng/mL (0-6.6)
[2022-09-08 02:08] LABS: ALT (SGPT) 22 U/L (8-55); AST (SGOT) 21 U/L (5-34); Albumin 4.3 g/dL (3.4-4.8); Alkaline Phosphatase 46 U/L (40-110); Anion Gap 20 mmol/L (10-20); BUN (Urea Nitrogen) 15 mg/dL (8.4-25.7); Bilirubin, Total 0.4 mg/dL (0.2-1.2); Calc. Creatinine Clearance 0 mL/min (70-130); Calcium 10.1 mg/dL (7.8-10.44); Carbon Dioxide 19 mmol/L (23-31); Chloride 100 mmol/L (98-107); Estimated GFR 56; Globulin 2.9 g/dL (2.4-3.5); Glucose 206 mg/dL (80-115); Potassium 3.2 mmol/L (3.5-5.1); Protein, Total 7.2 g/dL (5.8-8.1); Sodium 136 mmol/L (136-145)
[2022-09-08 03:25] LABS: Magnesium 1.1 mg/dL (1.6-2.6)
[2022-09-08] MEDS ORDERED: Magnesium 2 GM/50 ML BAG (IN WATER) ONE (03:25)
[2022-09-08] MEDS ORDERED: Potassium Chloride 20 MEQ TAB ONE (03:25)
[2022-09-08] MEDS ORDERED: Ondansetron PF 4 MG/2 ML Vial IVP PRN (03:44)
[2022-09-08] MEDS ORDERED: Acetaminophen 650 MG Suppository PR PRN (03:44)
[2022-09-08] MEDS ORDERED: Acetaminophen 325 MG TAB PO PRN (03:44)
[2022-09-08] MEDS ORDERED: Ondansetron ODT 4 MG TAB PO PRN (03:44)
[2022-09-08] MEDS ORDERED: Electrolyte Replacement Protocol 1 EACH FS PRN (03:45)
[2022-09-08] MEDS ORDERED: Potassium Chloride 20 MEQ TAB PO SCH (04:00)
[2022-09-08] MEDS ORDERED: Magnesium 2 GM/50 ML(in water) 2 GM in Premix Bag 1 BAG IVPB SCH ×2 (04:00→11:15)
[2022-09-08 04:18] LABS: Troponin I 0.101 ng/mL (< 0.028)
[2022-09-08 05:43] LABS: Bacteria/HPF None Seen HPF (None Seen); Bilirubin Negative (Negative); Blood, Urine Negative (Negative); CAUTI Indications for Culture Alt mental st,lethar; Clarity Clear (Clear); Glucose, Urine (Dipstick) Normal (Negative); Ketone, Urine Negative (Negative); Leukocyte Negative Leu/uL (Negative); Nitrite Negative (Negative); Protein, Urine (Dipstick) Negative (Neg-Trace); RBC/HPF None Seen HPF (0-3); Specific Gravity, Urine 1.015 (1.002-1.036); Squamous Epithelial None Seen HPF (0-3); Urobilinogen Normal mg/dL (Less than 2); WBC/HPF 0-3 HPF (0-3); pH, Urine 6.5 (5.0-9.0)
[2022-09-08 05:48] LABS: Urine Culture Reflex No No
[2022-09-08 05:57] LABS: Lactic Acid 2.2 mmol/L (0.5-2.2)
[2022-09-08 06:36] VITALS: BMI 29.4
[2022-09-08 06:48] LABS: Troponin I 0.105 ng/mL (< 0.028)
[2022-09-08 08:56] LABS: Free T4 (Free Thyroxine) 0.75 ng/dL (0.70-1.48)
[2022-09-08] MEDS: dilTIAZem 125 MG in Sodium Chloride 0.9% 100 ML IVPB SCH ×2 (09:30→20:53)
[2022-09-08] MEDS ORDERED: Iopamidol 370 76% 100 ML VIAL ONE (09:50)
[2022-09-08 10:55] LABS: Anion Gap 14 mmol/L (10-20); BUN (Urea Nitrogen) 13 mg/dL (8.4-25.7); Calc. Creatinine Clearance 106 mL/min (70-130); Calcium 9.1 mg/dL (7.8-10.44); Carbon Dioxide 21 mmol/L (23-31); Chloride 107 mmol/L (98-107); Estimated GFR 92; Glucose 132 mg/dL (80-115); Magnesium 1.8 mg/dL (1.6-2.6); Sodium 138 mmol/L (136-145)
[2022-09-08] MEDS ORDERED: Metoprolol Tartrate 5 MG/5 ML VIAL IVP SCH (14:30)
[2022-09-08] MEDS ORDERED: Metoprolol Tartrate 50 MG TAB PO SCH (17:00)
[2022-09-08] MEDS: Metoprolol Tartrate 50 MG TAB PO SCH (20:53)
[2022-09-09 05:09] LABS: #Eosinphils 0.2 thou/uL (0.0-0.7); #Monocytes 0.9 thou/uL (0.11-0.59); #Neutrophils 5.3 thou/uL (1.40-6.50); %Basophils 0.3 % (0.0-1.0); %Eosinophils 1.5 % (0.0-10.0); %Lymphocytes 52.1 % (21.0-51.0); %Monocytes 6.8 % (0.0-10.0); %Neutrophils 39.1 % (42.0-75.0); Hemoglobin 15.6 g/dL (14.0-18.0); Mean Corpuscular HGB CONC 33.7 g/dL (32.0-36.0); Mean Corpuscular Hemoglobin 30.9 pg (27.0-31.0); Mean Corpuscular Volume 91.7 fl (78.0-98.0); Mean Platelet Volume 9.9 fL (7.4-10.4); Platelet Count 260 10x3/uL (130-400); Red Blood Cell (RBC) Count 5.05 mill/uL (4.70-6.10); White Blood Cell (WBC) Count 13.6 10x3/uL (4.8-10.8)
[2022-09-09 05:34] LABS: Anion Gap 16 mmol/L (10-20); BUN (Urea Nitrogen) 14 mg/dL (8.4-25.7); Calc. Creatinine Clearance 110 mL/min (70-130); Calcium 8.6 mg/dL (7.8-10.44); Carbon Dioxide 18 mmol/L (23-31); Chloride 108 mmol/L (98-107); Estimated GFR 96; Glucose 128 mg/dL (80-115); Magnesium 2.1 mg/dL (1.6-2.6); Sodium 138 mmol/L (136-145)
[2022-09-09 08:30] VITALS: BP 129/88; TEMP 98.4
[2022-09-09] MEDS: Metoprolol Tartrate 50 MG TAB PO SCH (10:50)
[2022-09-09] MEDS ORDERED: Midazolam HCl 2 mg/2 ml Vial ONE (12:38)
[2022-09-09] MEDS ORDERED: Propofol 1,000 MG/100 ML VIAL IV ONE (12:38)
[2022-09-09] MEDS ORDERED: fentaNYL 50 mcg/mL 1 mL Vial ONE ×4 (12:38→14:23)
[2022-09-09] MEDS ORDERED: CEFAZOLIN 2 GM VIAL ONE (12:46)
[2022-09-09] MEDS ORDERED: Dexamethasone 20 MG/5 ML VIAL ONE (12:48)
[2022-09-09] MEDS ORDERED: Ondansetron PF 4 MG/2 ML Vial ONE (12:48)
[2022-09-09] MEDS ORDERED: PROPOFOL 200 MG/20 ML VIAL ONE (12:48)
[2022-09-09] MEDS ORDERED: PHENYLEPHRINE-NS 100 MCG/ML 10 ML SYRINGE ONE (12:48)
[2022-09-09] MEDS ORDERED: Lidocaine 1% (PF) 30 ML VIAL ONE (13:21)
[2022-09-09] MEDS ORDERED: Morphine 4 MG/ML VIAL ONE (13:36)
[2022-09-09] MEDS ORDERED: Morphine Sulfate 2 MG/ML SYRINGE SLOW IVP PRN (13:43)
[2022-09-09] MEDS ORDERED: Ondansetron HCl/PF 4 MG/2 ML Vial IVP PRN (13:43)
[2022-09-09] MEDS ORDERED: HYDROmorphone 2 MG/ML VIAL SLOW IVP PRN (13:43)
[2022-09-09] MEDS ORDERED: Meperidine HCl/PF 25 MG/ML VIAL SLOW IVP PRN (13:43)
[2022-09-09] MEDS ORDERED: Promethazine HCl 25 MG/ML VIAL IM PRN (13:43)
== END 2022-09-09 18:55 | disposition home or self-care (01) ==
LOC: ERS 00:17 → ERHOLD 02:57 → 2SW 11:46
PROVIDERS: ADMIT Student in an Organized Health Care Education/Training Program; ATTEND Hospitalist
DX: I48.92 Unspecified atrial flutter (principal); I34.0 Nonrheumatic mitral (valve) insufficiency; I25.10 Atherosclerotic heart disease of native coronary artery without angina pectoris; I21.4 Non-ST elevation (NSTEMI) myocardial infarction; E87.6 Hypokalemia; E83.42 Hypomagnesemia; E87.20 Acidosis, unspecified; E03.9 Hypothyroidism, unspecified; F17.210 Nicotine dependence, cigarettes, uncomplicated; Z79.82 Long term (current) use of aspirin; Z79.02 Long term (current) use of antithrombotics/antiplatelets; Z79.01 Long term (current) use of anticoagulants; Z79.899 Other long term (current) drug therapy; Z86.73 Personal history of transient ischemic attack (TIA), and cerebral infarction without residual deficits; Z88.1 Allergy status to other antibiotic agents; Z88.8 Allergy status to other drugs, medicaments and biological substances; Z95.5 Presence of coronary angioplasty implant and graft; Z95.0 Presence of cardiac pacemaker
CPT/HCPCS: 36415; 71045; 71275; 80048; 80053; 81001; 82553; 83605; 83735; 84439; 84443; 84481; 84484; 85025; 87040; 87086; 93005; 93010; 93306; 93312; 93653; 96365; 96372; 96375; 96376; C1731; C1732; C1760; C1769; C1894; G0378; J1100; J1650; J2001; J2250; J2270; J2405; J2704; J3010; J3475; J3490; Q9967

== ENCOUNTER 2023-07-20 15:15 | Outpatient (CLI) | payer OTHER ==
[2023-07-20 16:32] LABS: Bilirubin Neg (Negative); Blood, Urine Negative (Negative); Clarity Clear (Clear); Glucose, Urine (Dipstick) Normal (Negative); Ketone, Urine Negative (Negative); Leukocyte Negative (Negative); Nitrite Negative (Negative); Protein, Urine (Dipstick) Negative (Neg-Trace); Specific Gravity, Urine 1.015 (1.005-1.030); Urobilinogen Normal mg/dL (Less than 2)
[2023-07-20 16:33] LABS: Hematocrit 43.2 % (38.8-50.0); Hemoglobin 14.6 g/dL (13.5-17.5); Mean Corpuscular HGB CONC 33.8 g/dL (32.0-36.0); Mean Corpuscular Hemoglobin 30.4 pg (27.0-33.0); Mean Platelet Volume 9.7 fL (7.4-10.4); Platelet Count 299 10x3/uL (150-450); RBC Distribution Width 13.9 % (11.5-14.5); White Blood Cell (WBC) Count 13.1 10x3/uL (3.5-10.5)
[2023-07-20 17:26] LABS: Anion Gap 16 mmol/L (10-20); BUN (Urea Nitrogen) 13 mg/dL (8.4-25.7); Calc. Creatinine Clearance 0 mL/min (70-130); Calcium 9.6 mg/dL (7.8-10.44); Carbon Dioxide 20 mmol/L (23-31); Chloride 107 mmol/L (98-107); Estimated GFR 77; Glucose 216 mg/dL (80-115); Sodium 139 mmol/L (136-145)
[2023-07-20 17:44] LABS: Bacteria/HPF Rare-Few HPF (None Seen); RBC/HPF None Seen HPF (0-3); Squamous Epithelial 0-3 HPF (0-3); WBC/HPF None Seen HPF (0-3)
[2023-07-20 17:50] LABS: PTT 27.1 sec (22.0-33.0); Prothrombin Time 11.3 sec (9.5-12.1)
== END 2023-07-20 15:16 | disposition home or self-care (01) ==
LOC: LABBT 15:15
PROVIDERS: ATTEND Urology
DX: Z01.818 Encounter for other preprocedural examination (principal); N40.1 Benign prostatic hyperplasia with lower urinary tract symptoms; R35.0 Frequency of micturition; E11.9 Type 2 diabetes mellitus without complications; R97.20 Elevated prostate specific antigen [PSA]; I25.10 Atherosclerotic heart disease of native coronary artery without angina pectoris; G45.9 Transient cerebral ischemic attack, unspecified; D72.829 Elevated white blood cell count, unspecified; Z79.01 Long term (current) use of anticoagulants; Z72.0 Tobacco use
CPT/HCPCS: 71046; 80048; 81001; 85027; 85610; 85730; 87086; 93005; 93010

== ENCOUNTER 2023-11-26 01:33 | Observation (INO) | payer MEDICARE, OTHER ==
[2023-11-26 02:15] LABS: Hematocrit 41.9 % (42.0-52.0); Hemoglobin 14.1 g/dL (14.0-18.0); Mean Corpuscular HGB CONC 33.7 g/dL (32.0-36.0); Mean Corpuscular Hemoglobin 30.1 pg (27.0-31.0); Mean Corpuscular Volume 89.3 fL (78.0-98.0); Mean Platelet Volume 9.9 fL (7.4-10.4); Platelet Count 312 10x3/uL (130-400); RBC Distribution Width 14.2 % (11.5-14.5); Red Blood Cell (RBC) Count 4.69 mill/uL (4.70-6.10)
[2023-11-26 02:28] LABS: Troponin I 0.025 ng/mL (< 0.028)
[2023-11-26 02:47] LABS: ALT (SGPT) 17 U/L (8-55); AST (SGOT) 16 U/L (5-34); Albumin 3.7 g/dL (3.4-4.8); Alkaline Phosphatase 48 U/L (40-110); Anion Gap 17 mmol/L (10-20); BUN (Urea Nitrogen) 8 mg/dL (8.4-25.7); Bilirubin, Total 0.4 mg/dL (0.2-1.2); Calc. Creatinine Clearance 0 mL/min (70-130); Calcium 9.3 mg/dL (7.8-10.44); Carbon Dioxide 19 mmol/L (23-31); Chloride 102 mmol/L (98-107); Estimated GFR 85; Globulin 2.8 g/dL (2.4-3.5); Glucose 275 mg/dL (80-115); Potassium 2.8 mmol/L (3.5-5.1); Protein, Total 6.5 g/dL (5.8-8.1); Sodium 135 mmol/L (136-145)
[2023-11-26] MEDS ORDERED: Ondansetron PF 4 MG/2 ML Vial IVP PRN (03:15)
[2023-11-26] MEDS ORDERED: Acetaminophen 325 MG TAB PO PRN (03:15)
[2023-11-26] MEDS ORDERED: Potassium Chloride 20 MEQ TAB ONE (03:18)
[2023-11-26 03:21] LABS: Eosinophils 2 % (0-10); Lymphocytes 26 % (21-51); Microcytosis SLIGHT = 6-15 cells HPF (0-5); Monocytes 7 % (0-10); Neutrophil 53 % (42-75); Platelet Adequacy Comment Platelets Normal; Polychromasia SLIGHT = 2-3 cells HPF (0-2); Reactive Lymphocytes 11 % (0-10); Smudge Cells 33.3 %
[2023-11-26 03:36] LABS: Magnesium 1.4 mg/dL (1.6-2.6)
[2023-11-26] MEDS ORDERED: Magnesium Sulfate 2 GM in Sodium Chloride 0.9% 100 ML IVPB SCH (03:45)
[2023-11-26 04:08] VITALS: BMI 28.8
[2023-11-26] MEDS ORDERED: Aspirin Chewable 81 MG TAB PO SCH (04:15)
[2023-11-26] MEDS: Magnesium 2 GM/50 ML(in water) 2 GM in Premix 1 BAG IVPB SCH (05:17)
[2023-11-26] MEDS: Potassium Chloride 20 MEQ in Premix 1 BAG IVPB SCH ×2 (05:17→12:48)
[2023-11-26 07:34] LABS: Hemoglobin A1c 6.4 % (4.0-6.0)
[2023-11-26 07:37] LABS: Cardiac Risk 7.8 (Less than 4.5); Cholesterol 141 mg/dl (< 200 Desired); HDL Cholesterol 18 mg/dL (>60 Neg Risk); Triglycerides 617 mg/dL (Less than 150)
[2023-11-26 07:39] LABS: Troponin I Less than 0.010 ng/mL (< 0.028)
[2023-11-26] MEDS ORDERED: Electrolyte Replacement Protocol FS PRN (07:45)
[2023-11-26] MEDS ORDERED: Electrolyte Replacement Protocol 1 EACH FS SCH (07:45)
[2023-11-26] MEDS ORDERED: Regadenoson 0.4 MG/5 ML SYRINGE ONE (10:35)
[2023-11-26 10:40] VITALS: BP 130/70; TEMP 98.6
[2023-11-26] MEDS: Aspirin Chewable 81 MG TAB PO SCH (12:49)
[2023-11-26] MEDS: Clopidogrel Bisulfate 75 MG TAB PO SCH (12:49)
[2023-11-26] MEDS: Pantoprazole DR 40 MG TAB PO SCH (12:49)
[2023-11-26] MEDS: Enoxaparin 40 MG (0.4 mL) SYRINGE SC SCH (12:49)
[2023-11-26] MEDS: Metoprolol Tartrate 50 MG TAB PO SCH (12:49)
[2023-11-26 13:19] LABS: Anion Gap 11 mmol/L (10-20); BUN (Urea Nitrogen) 8 mg/dL (8.4-25.7); Calc. Creatinine Clearance 103 mL/min (70-130); Calcium 9.6 mg/dL (7.8-10.44); Carbon Dioxide 26 mmol/L (23-31); Chloride 104 mmol/L (98-107); Estimated GFR 92; Glucose 227 mg/dL (80-115); Magnesium 1.6 mg/dL (1.6-2.6); Potassium 3.7 mmol/L (3.5-5.1); Sodium 137 mmol/L (136-145)
[2023-11-26] MEDS: Nitroglycerin 0.4 MG TAB (25 Tab Bottle) SL PRN (13:26)
[2023-11-26 13:50] LABS: Troponin I 0.018 ng/mL (< 0.028)
[2023-11-26 16:39] LABS: Potassium 3.8 mmol/L (3.5-5.1)
[2023-11-26] MEDS: FLU (Fluad Triv) TS24-25 (65UP)/MF59C/PF 45 MCG/0.5 ML Syringe IM ONE (18:36)
[2023-11-26] MEDS ORDERED: Atorvastatin Calcium 40 MG TAB PO SCH (21:00)
[2023-11-26] MEDS ORDERED: Magnesium 2 GM/50 ML(in water) 2 GM in Premix 1 BAG IVPB SCH (22:00)
== END 2023-11-26 18:30 | disposition home or self-care (01) ==
LOC: ERS 01:33 → 2NO 03:15
PROVIDERS: ADMIT Internal Medicine; ATTEND Family Medicine
DX: R07.89 Other chest pain (principal); I10 Essential (primary) hypertension; I25.10 Atherosclerotic heart disease of native coronary artery without angina pectoris; E78.5 Hyperlipidemia, unspecified; E87.6 Hypokalemia; E83.42 Hypomagnesemia; D72.829 Elevated white blood cell count, unspecified; K21.9 Gastro-esophageal reflux disease without esophagitis; F17.210 Nicotine dependence, cigarettes, uncomplicated; Z86.73 Personal history of transient ischemic attack (TIA), and cerebral infarction without residual deficits; Z95.0 Presence of cardiac pacemaker; Z95.5 Presence of coronary angioplasty implant and graft; Z98.890 Other specified postprocedural states; Z88.8 Allergy status to other drugs, medicaments and biological substances; Z79.82 Long term (current) use of aspirin; Z79.02 Long term (current) use of antithrombotics/antiplatelets; Z79.51 Long term (current) use of inhaled steroids; Z79.899 Other long term (current) drug therapy
CPT/HCPCS: 71045; 78452; 80048; 80053; 80061; 83036; 83735; 84132; 84484 ×2; 85025; 93005; 93017; 96372; 96374; 96375; 96376; 99285; A9500; G0378; J1650; J2785 ×2; J3475; J3480; 36415

== ENCOUNTER 2024-02-27 03:03 | Emergency (ER) | payer OTHER, MEDICARE ==
[2024-02-27 04:13] LABS: Base Excess -3.6 mEq/L (-2.0 to +3.0); Calcium, Ionized (venous) 1.26 mmol/L (1.16-1.32); Chloride (VBG) 102 mmol/L (98-106); Hematocrit-VBG 45 % (42.0-52.0); Hemoglobin (Hb) 15.3 g/dL (12.6-17.4); Potassium (VBG) 4.14 mmol/L (3.70-5.30); Sodium 139 mmol/L (133-146); pH (venous) 7.339 (7.32-7.43)
[2024-02-27 04:18] LABS: #Basophils 0.06 10x3/uL (0.0-0.2); %Basophils 0.5 % (0.0-1.0); %Eosinophils 1.2 % (0.0-10.0); %Lymphocytes 48.3 % (21.0-51.0); %Monocytes 10.5 % (0.0-10.0); %Neutrophils 39.1 % (42.0-75.0); Hematocrit 43.5 % (42.0-52.0); Hemoglobin 14.7 g/dL (14.0-18.0); Mean Corpuscular HGB CONC 33.8 g/dL (32.0-36.0); Mean Corpuscular Hemoglobin 29.6 pg (27.0-31.0); Mean Corpuscular Volume 87.5 fL (78.0-98.0); Mean Platelet Volume 9.8 fL (7.4-10.4); Platelet Count 310 10x3/uL (130-400); RBC Distribution Width 13.8 % (11.5-14.5); Red Blood Cell (RBC) Count 4.97 mill/uL (4.70-6.10)
[2024-02-27 04:44] LABS: ALT (SGPT) 16 U/L (8-55); AST (SGOT) 14 U/L (5-34); Albumin 3.6 g/dL (3.4-4.8); Alkaline Phosphatase 49 U/L (40-110); Anion Gap 12 mmol/L (10-20); BUN (Urea Nitrogen) 14 mg/dL (8.4-25.7); Bilirubin, Total 0.3 mg/dL (0.2-1.2); Calc. Creatinine Clearance 0 mL/min (70-130); Calcium 10.1 mg/dL (7.8-10.44); Carbon Dioxide 25 mmol/L (23-31); Chloride 105 mmol/L (98-107); Estimated GFR 72; Globulin 3.1 g/dL (2.4-3.5); Glucose 160 mg/dL (80-115); Potassium 4.3 mmol/L (3.5-5.1); Protein, Total 6.7 g/dL (5.8-8.1); Sodium 138 mmol/L (136-145)
[2024-02-27 04:46] LABS: Troponin I Less than 0.010 ng/mL (< 0.028)
[2024-02-27] MEDS ORDERED: Albuterol 2.5 MG (3 mL) NEB ONE (05:25)
[2024-02-27] MEDS ORDERED: Albuterol 2.5 MG (0.5 mL) NEB ONE (05:25)
[2024-02-27] MEDS ORDERED: Ipratropium/Albuterol 3 ML NEB ONE (05:35)
[2024-02-27] MEDS ORDERED: Iopamidol-370 76% 500 ML MDV (1 ML CHARGE) ONE (11:05)
== END 2024-02-27 09:03 | disposition home or self-care (01) ==
LOC: ERS 03:03
DX: J18.9 Pneumonia, unspecified organism (principal); I10 Essential (primary) hypertension; I25.10 Atherosclerotic heart disease of native coronary artery without angina pectoris; I25.2 Old myocardial infarction; E78.00 Pure hypercholesterolemia, unspecified; F17.210 Nicotine dependence, cigarettes, uncomplicated; Z55.6 Problems related to health literacy; Z95.0 Presence of cardiac pacemaker; Z79.02 Long term (current) use of antithrombotics/antiplatelets; Z79.82 Long term (current) use of aspirin; Z79.899 Other long term (current) drug therapy; Z86.73 Personal history of transient ischemic attack (TIA), and cerebral infarction without residual deficits
CPT/HCPCS: 36415; 71045; 71275; 80053; 82805; 83880; 84484; 85025; 85379; 93005; 94640; J7611; J7620